=== PATIENT | male | born 1955 | race American Indian/Alaskan Native ===

== ENCOUNTER 2018-05-07 17:18 | Inpatient (IN) | payer BC ==
[2018-05-07 17:49] VITALS: BMI 28.8
--- NOTE | 2018-05-07 20:40 | CP.PCM.HP ---
History of Present Illness - History of Present Illness History of Present Illness: CC: transferred from [facility] to Acute Rehab for weakness post acute CVA HPI: Patient is a 62-year-old male with past medical history significant for type 2 diabetes and GERD that presented to the emergency room at [facility] with left-sided weakness. 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 Presents to Acute rehab for admission and contuied intensive therapy. Patient denies chest pain or shortness of breath. No abdominal pain, nausea, or vomiting. No fevers or chills. No headaches or dizziness. No dysuria. No diarrhea. He does have constipation. PMD: none PMH: DM2, GERD, CVA new dx at [facility], Hypertension PSH: appendectomy in 2010 Meds: Patient denies taking any home medications New meds from [facility] reviewed. Allergies: NKDA Fam Hx: mother and two brothers have DM2 Soc Hx: denies tobacco or alcohol use. Admits to occasionally smoking marijuana. He is currently under a lot of stress as he is unemployed and trying to find a job. Present on Admission - Present on Admission Any Indicators Present on Admission: Yes History of DVT/PE: No History of Uncontrolled Diabetes: Yes Urinary Catheter: No Decubitus Ulcer Present: No Review of Systems - Review of Systems All systems: reviewed and no additional remarkable complaints except Review of Systems: in HPI Past Patient History - Past Medical History & Family History Past Medical History?: Yes - Past Social History Smoking Status: Never Smoked Drugs: Cannabis - CARDIAC Hx Hypertension: Yes - ENDOCRINE/METABOLIC Hx Diabetes Mellitus Type 2: Yes - MUSCULOSKELETAL/RHEUMATOLOGICAL Hx Falls: No - PSYCHIATRIC Hx Substance Use: Yes - SURGICAL HISTORY Hx Appendectomy: Yes (2010) Meds Allergies/Adverse Reactions: Allergies Allergy/AdvReac Type Severity Reaction Status Date / Time No Known Allergies Allergy Verified 05/04/18 22:08 Physical Exam - Constitutional Appears: Well, Non-toxic - Head Exam Head Exam: ATRAUMATIC - Eye Exam Eye Exam: Normal appearance - ENT Exam ENT Exam: Mucous Membranes Dry - Neck Exam Neck exam: Positive for: Full Rom - Respiratory Exam Respiratory Exam: Clear to Auscultation Bilateral, NORMAL BREATHING PATTERN. absent: Rales, Rhonchi, Wheezes - Cardiovascular Exam Cardiovascular Exam: REGULAR RHYTHM, +S1, +S2 - GI/Abdominal Exam GI & Abdominal Exam: Normal Bowel Sounds, Soft. absent: Organomegaly, Tenderness - Extremities Exam Additional comments: callous cuts no ulcers - Neurological Exam Neurological exam: Alert, Oriented x3 - Expanded Neurological Exam Expanded Patient oriented to: person, place, time Speech: Fluid Speech Cranial nerves: EOM's Intact: Normal, Facial Palsey w/Forehead Movement: Normal , Facial Palsey w/o Forehead Movement: Normal, Facial Sensation: Normal, Gag Reflex: Normal, Nystagmus: Normal, Tongue Deviation: Normal Neuro motor strength exam: Left Upper Extremity: 5, Right Upper Extremity: 5, Left Lower Extremity: 3, Right Lower Extremity: 5 Coma Scale Eye Opening: SPONTANEOUS Coma Scale Motor Response: OBEYS COMMANDS - Psychiatric Exam Psychiatric exam: Normal Affect - Skin Skin Exam: Normal Color Results - Labs Labs: Reviewed from [facility] admission. - Imaging and Cardiology MRI - head Status: Report reviewed by me Assessment & Plan - Assessment and Plan (Free Text) Assessment: Patient is a 62-year-old male with past medical history significant for type 2 diabetes and GERD that presented to the emergency room with left-sided weakness. Patient found to have acute infarct in the right thalamus measuring 6 x 12 mm. 1. Ischemic CVA with left-sided weakness. MRI brain shows acute infarct in the right thalamus measuring 6 x 12 mm. Neurology following, recommendations appreciated. 2-D echo results pending. Head and neck CTA shows normal CT angiogram of the neck and unremarkable CT angiography of the brain. Continue aspirin and Lipitor and plavix. Continue physical therapy and occupational therapy. Patient to take plavix and asa for 21 days then follow up with Dr. Perla office for discontinuation of aspirin or Plavix based on his evaluation. 2. Uncontrolled type 2 diabetes. Hemoglobin A1c is 12.9. Will start on insulin Levemir 10 units at bedtime and Humalog 3 units before meals. Continue with insulin sliding scale. Continue diabetic diet. Monitor Accu-Cheks. Diabetic education. Start metformin monitor LFTs in 1 week. 3. Essential hypertension, uncontrolled. Now better controlled with lisinopril. Continue to monitor and adjust medications as needed 4. Hyperlipidemia. Continue Lipitor. Diet and exercise recommended 5. DVT prophylaxis. Heparin 5000 units subcutaneous every 8 hours 6. Patient will need follow with neurologist Dr Perla within 3-5 days after discharge from rehab, and [facility] as scheduled on 05/13/18 at3:30pm (can also call to make an appointment).
[2018-05-07] MEDS ORDERED: Glucagon Recombinant 1 mg Inj IM PRN (20:43)
[2018-05-07] MEDS ORDERED: Dextrose 50% SYRINGE Inj (50 ml) IV PRN (20:43)
[2018-05-07] MEDS: Docusate-Senna 50 mg-8.6 mg Tab PO PRN (21:52)
[2018-05-07] MEDS: Insulin Detemir 100 Units/ml Inj SC SCH (22:41)
[2018-05-07] MEDS: Insulin Lispro (humaLOG) 100 Units/ml Inj SC SCH (22:52)
[2018-05-08 06:41] LABS: BASO % 0.5 % (0.0-2.0); EOS # 0.1 K/uL (0.0-0.7); EOS % 1.3 % (0.0-4.0); LYMPH # 2.5 K/uL (1.0-4.3); LYMPH % 30.9 % (20.0-40.0); MEAN CELL VOLUME 84.9 fl (80.0-94.0); MEAN CORPUSCULAR HEMOGLOBIN 28.9 pg (27.0-31.0); MEAN PLATELET VOLUME 9.1 fl (7.2-11.7); MONO # 0.5 K/uL (0.0-0.8); MONO % 5.9 % (0.0-10.0); NEUT % 61.4 % (50.0-75.0); RBC 4.51 Mil/uL (4.40-5.90); RED CELL DISTRIBUTION WIDTH 13.7 % (11.5-14.5); WHITE BLOOD COUNT 8.1 K/uL (4.8-10.8)
[2018-05-08 07:28] LABS: ALB/GLOB RATIO 1.1 (1.0-2.1); ALBUMIN 3.8 g/dL (3.5-5.0); ALT/SGPT 40 U/L (21-72); AST/SGOT 29 U/L (17-59); BLOOD UREA NITROGEN 12 mg/dl (9-20); CALCIUM 9.4 mg/dL (8.4-10.2)
[2018-05-08 07:29] LABS: GFR AFRICAN-AMERICAN > 60; GFR NON-AFRICAN AMERICAN > 60
[2018-05-08] MEDS ORDERED: Insulin Lispro (humaLOG) 100 Units/ml Inj SC SCH (07:30)
[2018-05-08] MEDS: Insulin Lispro (humaLOG) 100 Units/ml Inj SC SCH ×7 (08:53→23:04)
[2018-05-08] MEDS: Ammonium Lactate 12% Cream (140 g) TOP SCH ×2 (08:55→18:26)
[2018-05-08] MEDS: Docusate-Senna 50 mg-8.6 mg Tab PO PRN (08:56)
--- NOTE | 2018-05-08 12:38 | PCM.RRT ---
<Benja Holland - Last Filed: 05/08/18 12:53> PATIENT CARE Nurse Assessment - Situation PATIENT CARE Reason for Call: Hypotension PATIENT CARE Called By: RN - IV IV Inserted during PATIENT CARE?: Yes I.Reason for PATIENT CARE - A) Acute Change in Patient: (Select all that apply): Staff member or family is worried about patient Subjective: Pt 62 M with pmh of HTN, DM, GERD complained of feeling warm, diaphoretic and yawning. Nurse noted pt possible seizing. PATIENT CARE was called pt evaluated at bed side temp 97.9 BP 132/87 pulse 93 SPO2 97% glucose 249, Pt denies chest pain, SOb, headache, nausea, vomiting, abd pain. EKG done was shows no acute changes from previous one. Pt was started on Norvasc 2.5 mg in morning, and senna yesterday, and was already on Labetolol 100mg TiD and lisinopril 20 mg. CBC/CMB, troponin was ordered, bed positioning, parameter, neuro consult. Norvasc 2.5 mg d/c, labetolol 100mg reduce from TID to BID. NS started 500cc bolus, and Kepra 500mg bid. F/U lab and neuro consult. - Neurological Status (Select all that apply): Alert, Responsive, Oriented, Verbal, Follows Commands. absent: Confused - Respiratory Oxygen Delivery Method: Nasal Cannula @L/min - Constitutional Appears: Well, Non-toxic, No Acute Distress - Head Head Exam: ATRAUMATIC, NORMAL INSPECTION, NORMOCEPHALIC - Eyes Eye Exam: EOMI, Normal appearance, PERRL - Respiratory Exam Respiratory Exam: Clear to Ausculation Bilateral, NORMAL BREATHING PATTERN - Cardiovascular Exam Cardiovascular Exam: REGULAR RHYTHM, +S1, +S2 - GI/Abdominal Exam GI & Abdominal Exam: Soft, Normal Bowel Sounds. absent: Tenderness - Neurological Exam Neurological Exam: Alert, Awake - Extremities Exam Extremities Exam: Full ROM, Normal Capillary Refill, Normal Inspection Plan - Assessment of Findings&Treatment Plan Pt 62 M with pmh of HTN, DM, GERD complained of feeling warm, diaphoretic and yawning. Nurse noted pt possible seizing. Plan Stop Norvasc 2.5 Decrease labetolol TID to BID Kepra 500mg BID Parameter for orthostatic F/u labs F/u Troponin neuro consulted Pt remain in Acute rehab <Harrison Bell - Last Filed: 05/08/18 15:33> PATIENT CARE Nurse Assessment - Vital Signs Vital Signs: Rapid Response Vital Sign Blood Pressure 132/87 Pulse Rate 93 Respiratory Rate 18 Temperature 97.9 F Oxygen Saturation 97 - Vital Signs at end of PATIENT CARE Vital Signs at end of PATIENT CARE: Rapid Response End Vital Sign Blood Pressure 123/74 Pulse Rate 87 Respiratory Rate 18 Attending/Attestation - Attestation I have personally seen and examined this patient.: Yes I have fully participated in the care of the patient.: Yes I have reviewed all pertinent clinical information, including history, physical exam and plan: Yes Notes (Text): Labs, ekg reviewed trop neg will check chest ct to rule out pe start keppra order EEG most likely Orthostatic hypotension - due to new bp med Norvasc which was discontinued after PATIENT CARE
[2018-05-08 13:09] LABS: BASO # 0.1 K/uL (0.0-0.2); EOS # 0.1 K/uL (0.0-0.7); EOS % 1.8 % (0.0-4.0); HEMOGLOBIN 13.1 g/dL (12.0-18.0); LYMPH # 2.4 K/uL (1.0-4.3); LYMPH % 29.1 % (20.0-40.0); MEAN CELL VOLUME 85.4 fl (80.0-94.0); MEAN CORPUSCULAR HEMOGLOBIN 28.9 pg (27.0-31.0); MEAN CORPUSCULAR HGB CONC 33.9 g/dL (33.0-37.0); MEAN PLATELET VOLUME 9.5 fl (7.2-11.7); MONO # 0.5 K/uL (0.0-0.8); MONO % 6.2 % (0.0-10.0); NEUT # 5.1 K/uL (1.8-7.0); NEUT % 61.9 % (50.0-75.0); NRBC % 0.2 % (0.0-0.0); RBC 4.52 Mil/uL (4.40-5.90); RED CELL DISTRIBUTION WIDTH 14.2 % (11.5-14.5); WHITE BLOOD COUNT 8.2 K/uL (4.8-10.8)
[2018-05-08] MEDS: Sodium Chloride 0.9% 1,000 ML IV SCH ×2 (13:21→14:07)
--- NOTE | 2018-05-08 13:33 | PSY.TMCNF ---
Nursing - Vital Signs Vital Signs (Last 8 hours): Vital Signs 05/08/18 05/08/18 05/08/18 08:47 08:55 08:56 Temperature 98.4 F Pulse Rate 90 90 90 Respiratory 20 Rate Blood Pressure 148/94 H 148/94 H 148/94 H O2 Sat by Pulse 96 Oximetry 05/08/18 09:00 Temperature 98.4 F Pulse Rate 90 Respiratory 20 Rate Blood Pressure 148/94 H O2 Sat by Pulse Oximetry - Precautions: Precautions: Fall Prevention - Medications/Other Issues Comment: constipation - LBM , prn senna given along with scheduled colace - Consults Comment: - rehab MD = Dr. cox - Skin Incision Site: n/a - Toileting Toileting: Maximal Assistance - Bladder Management Bladder Pattern: Normal Voiding Method: Urinal - Bowel Management Bowel Pattern: Constipated Comment: LBm 05/03 - Transfers Transfers: Maximal Assistance - ADL's ADL's: Moderate Assistance - Pain Management Comments: denies pain at this time - Patient/Family Teaching Comments: - medications. - new to DM, DM diet. - safety - Goals/Time Frame Comments: as per multiinterdisciplinary - Provider Provider: Silvia Kramer RN Physical Therapy - Transfers Wheelchair to Mat: Moderate Assistance - Provider License Number: [id number] Occupational Therapy - Arousal/Attention/Orientation Patient Orientation: Person, Place, Time, Appropriate to Age, Appropriate to Situation Nutrition - Current Diet Current Diet/ Supplement/ Feedings: Moderate consistent CHO heart healthy diet - Appetite Percent Meal Consumed: 75-100% - Comments Comments: - medications. - new to DM, DM diet. - safety - Assessment/Goals/Time Frame Assessment/Goals/Time Frame: constipation - LBM , prn senna given along with scheduled colace - Provider Provider: Breanne Barros RD Case Management - Discharge Plan Discharge Plan: Home with significant other/family Rehabilitation Plan - Treatment Plan Treatment Plan: Physical Therapy, Occupational Therapy, Speech, Dietary, Patient /Family Education - Recommendation Recommendation: Physical Therapy, Occupational Therapy, Speech, Dietary, Patient /Family Education - Discharge Plan Discharge to: Home
[2018-05-08 13:52] LABS: ALB/GLOB RATIO 1.1 (1.0-2.1); ALBUMIN 3.8 g/dL (3.5-5.0); ALT/SGPT 41 U/L (21-72); AST/SGOT 41 U/L (17-59); BLOOD UREA NITROGEN 15 mg/dl (9-20); CALCIUM 9.3 mg/dL (8.4-10.2); GFR AFRICAN-AMERICAN > 60; GFR NON-AFRICAN AMERICAN > 60
--- NOTE | 2018-05-08 14:41 | CP.PCM.CON ---
History of Present Illness - History of Present Illness History of Present Illness: 62 year old male with left sided weakness, secondary to cva with DM gerd Review of Systems - Musculoskeletal Musculoskeletal: Muscle Weakness - Neurological Neurological: Weakness Past Patient History - Past Medical History & Family History Past Medical History?: Yes - Past Social History Smoking Status: Former Smoker - CARDIAC Hx Hypercholesterolemia: Yes Hx Hypertension: Yes - PULMONARY Hx Respiratory Disorders: No - NEUROLOGICAL Hx Neurological Disorder: Yes HX Cerebrovascular Accident: Yes - HEENT Hx HEENT Problems: No - RENAL Hx Chronic Kidney Disease: No - ENDOCRINE/METABOLIC Hx Diabetes Mellitus Type 2: Yes - HEMATOLOGICAL/ONCOLOGICAL Hx Blood Disorders: No Hx AIDS: No Hx Human Immunodeficiency Virus (HIV): No - INTEGUMENTARY Hx Dermatological Problems: No - MUSCULOSKELETAL/RHEUMATOLOGICAL Hx Musculoskeletal Disorders: No Hx Falls: No - GASTROINTESTINAL Hx Gastrointestinal Disorders: Yes Other/Comment: GERD - GENITOURINARY/GYNECOLOGICAL Hx Genitourinary Disorders: No - PSYCHIATRIC Hx Substance Use: Yes () - SURGICAL HISTORY Hx Surgeries: Yes Hx Appendectomy: Yes (2010) - ANESTHESIA Hx Anesthesia: Yes Hx Anesthesia Reactions: No Meds Allergies/Adverse Reactions: Allergies Allergy/AdvReac Type Severity Reaction Status Date / Time No Known Allergies Allergy Verified 05/04/18 22:08 - Medications Medications: Current Medications Acetaminophen (Tylenol 325mg Tab) 650 mg PO Q6 PRN PRN Reason: pain 8-10 Aspirin (Aspirin Chewable) 81 mg PO DAILY [facility] Last Admin: 05/08/18 08:53 Dose: 81 mg Atorvastatin Calcium (Lipitor) 40 mg PO DIN [facility] Bisacodyl (Dulcolax) 10 mg MO ONCE PRN PRN Reason: Constipation Last Admin: 05/08/18 13:20 Dose: 10 mg Bismuth Subsalicylate (Pepto Bismol) 262 mg PO Q1 PRN PRN Reason: GI distress Clopidogrel Bisulfate (Plavix) 75 mg PO DAILY [facility] Last Admin: 05/08/18 08:56 Dose: 75 mg Dextrose (Dextrose 50% Inj) 0 ml IV STAT PRN; Protocol PRN Reason: Hypoglycemia Protocol Dextrose (Glutose 15) 0 gm PO ONCE PRN; Protocol PRN Reason: Hypoglycemia Protocol Docusate Sodium (Colace) 100 mg PO DAILY [facility] Last Admin: 05/08/18 08:53 Dose: 100 mg Glucagon (Glucagen Diagnostic Kit) 0 mg IM STAT PRN; Protocol PRN Reason: Hypoglycemia Protocol Heparin Sodium (Porcine) (Heparin) 5,000 units SC Q8 [facility] PRN Reason: Protocol Last Admin: 05/08/18 05:19 Dose: 5,000 units Insulin Detemir (Levemir) 10 units SC HS [facility] Last Admin: 05/07/18 22:41 Dose: 10 units Insulin Human Lispro (Humalog) 4 units SC ACTID [facility] Last Admin: 05/08/18 13:40 Dose: 4 units Insulin Human Lispro (Humalog) 0 units SC ACHS [facility] PRN Reason: Protocol Last Admin: 05/08/18 13:42 Dose: 3 units Labetalol HCl (Trandate) 100 mg PO BID [facility] Lactic Acid (Lac-Hydrin 12% Cream (140 G)) 1 ea TOP BID [facility] Last Admin: 05/08/18 08:55 Dose: 1 tube Levetiracetam (Keppra) 500 mg PO BID [facility] Lisinopril (Zestril) 20 mg PO DAILY [facility] Last Admin: 05/08/18 08:56 Dose: 20 mg Senna/Docusate Sodium (Senokot S 50 Mg-8.6 Mg) 1 tab PO HS PRN PRN Reason: Constipation Last Admin: 05/08/18 08:56 Dose: 1 tab Physical Exam - Head Exam Head Exam: ATRAUMATIC, NORMAL INSPECTION, NORMOCEPHALIC - Eye Exam Eye Exam: EOMI, Normal appearance, PERRL Pupil Exam: NORMAL ACCOMODATION - ENT Exam ENT Exam: Mucous Membranes Moist, Normal Exam - Neck Exam Neck exam: Positive for: Normal Inspection - Respiratory Exam Respiratory Exam: Clear to Auscultation Bilateral, NORMAL BREATHING PATTERN - Cardiovascular Exam Cardiovascular Exam: REGULAR RHYTHM - GI/Abdominal Exam GI & Abdominal Exam: Normal Bowel Sounds - Rectal Exam Rectal Exam: NORMAL INSPECTION - Exam External exam: NORMAL EXTERNAL EXAM - Extremities Exam Extremities exam: Positive for: normal inspection Additional comments: left sided weakness - Back Exam Back exam: NORMAL INSPECTION - Neurological Exam Neurological exam: Alert, CN II-XII Intact - Psychiatric Exam Psychiatric exam: Normal Affect, Normal Mood - Skin Skin Exam: Dry, Intact Results - Vital Signs Recent Vital Signs: Last Vital Signs Temp 98.4 F 05/08/18 09:00 Pulse 90 05/08/18 09:00 Resp 20 05/08/18 09:00 BP 148/94 H 05/08/18 09:00 Pulse Ox 96 05/08/18 08:47 - Labs Result Diagrams: 05/08/18 12:55 05/08/18 12:55 Labs: Laboratory Results - last 24 hr 05/08/18 05/08/18 05/08/18 05:20 05:20 12:55 WBC 8.1 8.2 RBC 4.51 4.52 Hgb 13.0 13.1 Hct 38.3 38.6 MCV 84.9 85.4 MCH 28.9 28.9 MCHC 34.0 33.9 RDW 13.7 14.2 Plt Count 251 265 MPV 9.1 9.5 Neut % (Auto) 61.4 61.9 Lymph % (Auto) 30.9 29.1 [place] % (Auto) 5.9 6.2 Eos % (Auto) 1.3 1.8 Baso % (Auto) 0.5 1.0 Neut # (Auto) 5.0 5.1 Lymph # (Auto) 2.5 2.4 [place] # (Auto) 0.5 0.5 Eos # (Auto) 0.1 0.1 Baso # (Auto) 0.0 0.1 Sodium 138 Potassium 4.0 Chloride 103 Carbon Dioxide 23 Anion Gap 16 BUN 12 Creatinine 1.0 Est GFR ( Amer) > 60 Est GFR (Non-Af Amer) > 60 Random Glucose 240 H Calcium 9.4 Total Bilirubin 0.6 AST 29 ALT 40 Alkaline Phosphatase 105 Troponin I Total Protein 7.1 Albumin 3.8 Globulin 3.3 Albumin/Globulin Ratio 1.1 05/08/18 12:55 WBC RBC Hgb Hct MCV MCH MCHC RDW Plt Count MPV Neut % (Auto) Lymph % (Auto) [place] % (Auto) Eos % (Auto) Baso % (Auto) Neut # (Auto) Lymph # (Auto) [place] # (Auto) Eos # (Auto) Baso # (Auto) Sodium 138 Potassium 4.0 Chloride 101 Carbon Dioxide 24 Anion Gap 17 BUN 15 Creatinine 1.0 Est GFR ( Amer) > 60 Est GFR (Non-Af Amer) > 60 Random Glucose 283 H Calcium 9.3 Total Bilirubin 0.7 AST 41 ALT 41 Alkaline Phosphatase 97 Troponin I < 0.0120 Total Protein 7.4 Albumin 3.8 Globulin 3.6 Albumin/Globulin Ratio 1.1 Assessment & Plan (1) Hyperlipidemia Status: Acute Priority: Medium (2) Diabetes mellitus Status: Chronic Priority: Medium (3) GERD (gastroesophageal reflux disease) Status: Chronic Priority: Low (4) Hypertension Status: Chronic Priority: Medium (5) CVA (cerebral vascular accident) Assessment and Plan: plan for physical, occupational, rec and speech therapy for range of motion, strenghtening, transfers and gait training for overall plan of care Status: Resolved Priority: Medium
--- NOTE | 2018-05-08 14:44 | PCM.OPOC ---
Physiatry Overall Plan of Care - Overall Plan of Care Estimated Length of Stay in Weeks: 3 Rehab Impairment: Mobility, Gait, Cognition, Speech, Balance, Coordination Etiologic Diagnosis: Cerebrovascular Accident Rehab/Medical Prognosis: Fair - Anticipated Interventions Physical Therapy:: Yes Occupational Therapy:: Yes Speech Therapy:: Yes Recreational Therapy:: Yes - Therapy Goals Bed Mobility: Independent Ambulation: Supervision Functional Positional Changes:: Independent - Functional Outcomes Functional Outcomes: fair - Discharge Plan Identification of Barriers to Discharge: Cognition Discharge Destination: Home
[2018-05-08] MEDS ORDERED: Sodium Chloride 0.9% 50 ML IV ONE (17:16)
[2018-05-08] MEDS ORDERED: Iodixanol 320 MG/ML 100 ML BOTTLE IV ONE (17:16)
--- NOTE | 2018-05-08 18:13 | CP.PCM.PN ---
Subjective - Date & Time of Evaluation Date of Evaluation: 05/08/18 Time of Evaluation: 16:45 - Subjective Subjective: I arrived to the patient's room and was greeted by his family. They informed me that he had gone to CT scan. I spoke with them briefly and discussed the case with the patient's nurse and the physical therapist who witnessed the event earlier. Based on the report I received, the patient was receiving PT and using the treadmill. He complained of feeling lethargic and weak. He was taken off the treadmill and shortly after, his eyes "rolled back", his arms were extended and he was not responsive. He then had an episode of staring. This lasted for about one minute. Afterward, the patient regained consciousness and he asked "did I pass out". He said that he felt tired and wanted to sleep. There was no urinary/bowel incontinence, tongue biting, or collapse. The event was consistent with seizure. I agreed that the patient should be on Keppra 500 mg BID and an EEG should be performed. In addition, since the patient has had a recent stroke, a repeat CT scan of the head is recommended. Objective - Vital Signs/Intake and Output Vital Signs (last 24 hours): Temp Pulse Resp BP Pulse Ox 98.6 F 83 20 127/75 99 05/08/18 15:15 05/08/18 15:15 05/08/18 15:15 05/08/18 15:15 05/08/18 15:15 - Medications Medications: Current Medications Acetaminophen (Tylenol 325mg Tab) 650 mg PO Q6 PRN PRN Reason: pain 8-10 Aspirin (Aspirin Chewable) 81 mg PO DAILY [facility] Last Admin: 05/08/18 08:53 Dose: 81 mg Atorvastatin Calcium (Lipitor) 40 mg PO DIN [facility] Bisacodyl (Dulcolax) 10 mg NC ONCE PRN PRN Reason: Constipation Last Admin: 05/08/18 13:20 Dose: 10 mg Bismuth Subsalicylate (Pepto Bismol) 262 mg PO Q1 PRN PRN Reason: GI distress Clopidogrel Bisulfate (Plavix) 75 mg PO DAILY [facility] Last Admin: 05/08/18 08:56 Dose: 75 mg Dextrose (Dextrose 50% Inj) 0 ml IV STAT PRN; Protocol PRN Reason: Hypoglycemia Protocol Dextrose (Glutose 15) 0 gm PO ONCE PRN; Protocol PRN Reason: Hypoglycemia Protocol Docusate Sodium (Colace) 100 mg PO DAILY [facility] Last Admin: 05/08/18 08:53 Dose: 100 mg Glucagon (Glucagen Diagnostic Kit) 0 mg IM STAT PRN; Protocol PRN Reason: Hypoglycemia Protocol Heparin Sodium (Porcine) (Heparin) 5,000 units SC Q8 [facility] PRN Reason: Protocol Last Admin: 05/08/18 15:02 Dose: 5,000 units Insulin Detemir (Levemir) 10 units SC HS [facility] Last Admin: 05/07/18 22:41 Dose: 10 units Insulin Human Lispro (Humalog) 4 units SC ACTID [facility] Last Admin: 05/08/18 13:40 Dose: 4 units Insulin Human Lispro (Humalog) 0 units SC ACHS [facility] PRN Reason: Protocol Last Admin: 05/08/18 13:42 Dose: 3 units Labetalol HCl (Trandate) 100 mg PO BID [facility] Lactic Acid (Lac-Hydrin 12% Cream (140 G)) 1 ea TOP BID [facility] Last Admin: 05/08/18 08:55 Dose: 1 tube Levetiracetam (Keppra) 500 mg PO BID [facility] Lisinopril (Zestril) 20 mg PO DAILY [facility] Last Admin: 05/08/18 08:56 Dose: 20 mg Senna/Docusate Sodium (Senokot S 50 Mg-8.6 Mg) 1 tab PO HS PRN PRN Reason: Constipation Last Admin: 05/08/18 08:56 Dose: 1 tab - Labs Labs: 05/08/18 12:55 05/08/18 12:55
--- NOTE | 2018-05-08 18:31 | CT ---
Date of service: 05/08/2018 PROCEDURE: CT Chest with contrast (Pulmonary Angiogram) HISTORY: Pulmonary embolism suspected COMPARISON: None available. TECHNIQUE: Axial computed tomography images were obtained of the chest in the pulmonary arterial phase of enhancement. Coronal and sagittal reformatted images were created and reviewed. Intravenous contrast dose: 90 cc Visipaque 320. Mean Hounsfield unit values in the main pulmonary artery: 397.88 Radiation dose: Total exam DLP = mGy-cm. This CT exam was performed using one or more of the following dose reduction techniques: Automated exposure control, adjustment of the mA and/or kV according to patient size, and/or use of iterative reconstruction technique. FINDINGS: PULMONARY ARTERIES: Unremarkable. No pulmonary embolism. AORTA: No acute findings. No thoracic aortic aneurysm. LUNGS: Unremarkable. No nodule, mass or pulmonary consolidation. PLEURAL SPACES: Unremarkable. No effusion or pneumothorax. HEART: Unremarkable. No cardiomegaly. No significant pericardial effusion. LYMPH NODES: No lymphadenopathy. BONES, CHEST WALL: Unremarkable. No fracture or destructive lesion OTHER FINDINGS: Unremarkable. IMPRESSION: Unremarkable CT pulmonary angiogram. No pulmonary embolus.
--- NOTE | 2018-05-08 18:56 | CT ---
Date of service: 05/08/2018 PROCEDURE: CT HEAD WITHOUT CONTRAST. HISTORY: Near syncope. COMPARISON: None available. TECHNIQUE: Axial computed tomography images were obtained through the head/brain without intravenous contrast. Radiation dose: Total exam DLP = 814.65 mGy-cm. This CT exam was performed using one or more of the following dose reduction techniques: Automated exposure control, adjustment of the mA and/or kV according to patient size, and/or use of iterative reconstruction technique. FINDINGS: HEMORRHAGE: No intracranial hemorrhage. BRAIN: Mild chronic periventricular white matter ischemic changes with age indeterminate infarct right basal ganglia ; rule out acute infarct. Followup MRI recommended further evaluation Mild age-appropriate volume loss VENTRICLES: No obstructive hydrocephalus. CALVARIUM: Unremarkable. PARANASAL SINUSES: Mild mucosal thickening noted within multiple ethmoid air cells. . MASTOID AIR CELLS: Unremarkable as visualized. No inflammatory changes. OTHER FINDINGS: Old fracture deformity right lamina papyracea. IMPRESSION: No acute intracranial hemorrhage. Mild chronic periventricular white matter ischemic changes. Age indeterminate infarct right basal ganglia. Followup MRI recommended. Mild age-appropriate volume loss 6 floor Nurse Logan informed these findings at approximately 6:50 p.m. with written down and read back verification.
--- NOTE | 2018-05-08 20:10 | PN ---
DATE: 05/08/2018 SUBJECTIVE: The patient is doing fine at present. 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 No acute complaints at present. PHYSICAL EXAMINATION: VITAL SIGNS: Stable. NECK: Supple. CHEST: Symmetrical. HEART: Sounds S1 and S2. ABDOMEN: Benign. EXTREMITIES: No clubbing, cyanosis or edema. NEUROLOGICAL: The patient is alert and oriented, left lower extremity weakness with CVA. ASSESSMENT: Other diagnoses are diabetes, gastroesophageal reflux disease, appendectomy, hyperlipidemia. PLAN: For physical therapy , occupational therapy, recreational therapy, speech therapy. The patient seen by medical attending and also to be seen by neurologist today as well. Nathen Shaw MD
[2018-05-08] MEDS: Insulin Detemir 100 Units/ml Inj SC SCH (23:04)
[2018-05-09] MEDS: Docusate-Senna 50 mg-8.6 mg Tab PO PRN (08:30)
[2018-05-09] MEDS: Insulin Lispro (humaLOG) 100 Units/ml Inj SC SCH ×7 (08:33→21:35)
[2018-05-09] MEDS: Ammonium Lactate 12% Cream (140 g) TOP SCH ×2 (08:40→17:20)
--- NOTE | 2018-05-09 11:27 | CP.PCM.CON ---
History of Present Illness - History of Present Illness History of Present Illness: Mr. Marte is a 62-year-old male with past medical history significant for type 2 diabetes and GERD that presented to the emergency room at [facility] with left-sided weakness. 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 Presents to Acute rehab for admission and continued intensive therapy. Yesterday, he had an episode of his eyes "rolled back", his arms were extended and he was not responsive. He then had an episode of staring. This lasted for about one minute. [facility] was called with order for IVF and CT scan of the head. CT scan of the head showed No acute intracranial hemorrhage.Mild chronic periventricular white matter ischemic changes. Age indeterminate infarct right basal ganglia. Mild age-appropriate volume loss. Today, he is alert, oriented, claims of feeling tired after yesterday's incident. He denies any headache, dizziness, lightheadedness, blurred vision, or diplopia. Review of Systems - Review of Systems All systems: reviewed and no additional remarkable complaints except (left side weakness) Past Patient History - Past Medical History & Family History Past Medical History?: Yes - Past Social History Smoking Status: Former Smoker - CARDIAC Hx Hypercholesterolemia: Yes Hx Hypertension: Yes - PULMONARY Hx Respiratory Disorders: No - NEUROLOGICAL Hx Neurological Disorder: Yes HX Cerebrovascular Accident: Yes - HEENT Hx HEENT Problems: No - RENAL Hx Chronic Kidney Disease: No - ENDOCRINE/METABOLIC Hx Diabetes Mellitus Type 2: Yes - HEMATOLOGICAL/ONCOLOGICAL Hx Blood Disorders: No Hx AIDS: No Hx Human Immunodeficiency Virus (HIV): No - INTEGUMENTARY Hx Dermatological Problems: No - MUSCULOSKELETAL/RHEUMATOLOGICAL Hx Musculoskeletal Disorders: No Hx Falls: No - GASTROINTESTINAL Hx Gastrointestinal Disorders: Yes Other/Comment: GERD - GENITOURINARY/GYNECOLOGICAL Hx Genitourinary Disorders: No - PSYCHIATRIC Hx Substance Use: Yes (Marijuana) - SURGICAL HISTORY Hx Surgeries: Yes Hx Appendectomy: Yes (2010) - ANESTHESIA Hx Anesthesia: Yes Hx Anesthesia Reactions: No Meds Allergies/Adverse Reactions: Allergies Allergy/AdvReac Type Severity Reaction Status Date / Time No Known Allergies Allergy Verified 05/04/18 22:08 - Medications Medications: Current Medications Acetaminophen (Tylenol 325mg Tab) 650 mg PO Q6 PRN PRN Reason: pain 8-10 Aspirin (Aspirin Chewable) 81 mg PO DAILY [facility] Last Admin: 05/09/18 08:30 Dose: 81 mg Atorvastatin Calcium (Lipitor) 40 mg PO DIN [facility] Last Admin: 05/08/18 18:27 Dose: 40 mg Bisacodyl (Dulcolax) 10 mg [place] ONCE PRN PRN Reason: Constipation Last Admin: 05/08/18 13:20 Dose: 10 mg Bismuth Subsalicylate (Pepto Bismol) 262 mg PO Q1 PRN PRN Reason: GI distress Clopidogrel Bisulfate (Plavix) 75 mg PO DAILY [facility] Last Admin: 05/09/18 08:31 Dose: 75 mg Dextrose (Dextrose 50% Inj) 0 ml IV STAT PRN; Protocol PRN Reason: Hypoglycemia Protocol Dextrose (Glutose 15) 0 gm PO ONCE PRN; Protocol PRN Reason: Hypoglycemia Protocol Docusate Sodium (Colace) 100 mg PO DAILY [facility] Last Admin: 05/09/18 08:32 Dose: 100 mg Glucagon (Glucagen Diagnostic Kit) 0 mg IM STAT PRN; Protocol PRN Reason: Hypoglycemia Protocol Heparin Sodium (Porcine) (Heparin) 5,000 units SC Q8 [facility] PRN Reason: Protocol Last Admin: 05/09/18 06:35 Dose: 5,000 units Insulin Detemir (Levemir) 10 units SC HS [facility] Last Admin: 05/08/18 23:04 Dose: 10 units Insulin Human Lispro (Humalog) 4 units SC ACTID [facility] Last Admin: 05/09/18 08:33 Dose: 4 units Insulin Human Lispro (Humalog) 0 units SC ACHS [facility] PRN Reason: Protocol Last Admin: 05/09/18 08:34 Dose: 4 units Labetalol HCl (Trandate) 100 mg PO BID [facility] Last Admin: 05/09/18 08:31 Dose: 100 mg Lactic Acid (Lac-Hydrin 12% Cream (140 G)) 1 ea TOP BID [facility] Last Admin: 05/09/18 08:40 Dose: 1 tube Levetiracetam (Keppra) 500 mg PO BID [facility] Last Admin: 05/09/18 08:30 Dose: 500 mg Lisinopril (Zestril) 20 mg PO DAILY [facility] Last Admin: 05/09/18 08:40 Dose: 20 mg Senna/Docusate Sodium (Senokot S 50 Mg-8.6 Mg) 1 tab PO HS PRN PRN Reason: Constipation Last Admin: 05/09/18 08:30 Dose: 1 tab Physical Exam - Constitutional Appears: No Acute Distress - Head Exam Head Exam: NORMAL INSPECTION - Eye Exam Eye Exam: EOMI, Normal appearance, PERRL Pupil Exam: NORMAL ACCOMODATION, PERRL - ENT Exam ENT Exam: Mucous Membranes Moist, Normal Exam - Neck Exam Neck exam: Positive for: Normal Inspection - Respiratory Exam Respiratory Exam: Clear to Auscultation Bilateral, NORMAL BREATHING PATTERN - Cardiovascular Exam Cardiovascular Exam: +S1, +S2 - GI/Abdominal Exam GI & Abdominal Exam: Normal Bowel Sounds, Soft. absent: Tenderness - Extremities Exam Extremities exam: Positive for: normal inspection Additional comments: left side weakness - Neurological Exam Neurological exam: Alert, Oriented x3 - Expanded Neurological Exam Expanded Patient oriented to: person, place, time Cranial nerves: EOM's Intact: Normal, Facial Palsey w/Forehead Movement: Abnormal Left, Facial Sensation: Normal, Gag Reflex: Normal, Nystagmus: Normal, Tongue Deviation: Normal Cerebellar Function: Finger to Nose: Normal, Heel to [place]: Abnormal Left Upper motor neuron: Chucho Neglect: Normal, Pronator Drift: Normal, Sensory Extinction: Normal Sensory exam: Lower Extremity 2 Point Discrimination: Normal, Lower Extremity Light Touch: Normal, Lower Extremity Pin Prick: Normal, Lower Extremity Temperature: Normal, Upper Extremity 2 Point Discrimination: Normal, Upper Extremity Light Touch: Normal, Upper Extremity Pin Prick: Normal, Upper Extremity Temperature: Normal Neuro motor strength exam: Left Upper Extremity: 3, Right Upper Extremity: 4, Left Lower Extremity: 3, Right Lower Extremity: 4 Results - Vital Signs Recent Vital Signs: Last Vital Signs Temp 97.3 F L 05/09/18 08:06 Pulse 78 05/09/18 08:40 Resp 20 05/09/18 08:06 BP 138/78 05/09/18 08:40 Pulse Ox 97 05/09/18 08:06 - Labs Result Diagrams: 05/08/18 12:55 05/08/18 12:55 Labs: Laboratory Results - last 24 hr 05/07/18 05/08/18 05/08/18 20:52 05:18 12:55 WBC 8.2 RBC 4.52 Hgb 13.1 Hct 38.6 MCV 85.4 MCH 28.9 MCHC 33.9 RDW 14.2 Plt Count 265 MPV 9.5 Neut % (Auto) 61.9 Lymph % (Auto) 29.1 Bay % (Auto) 6.2 Eos % (Auto) 1.8 Baso % (Auto) 1.0 Neut # (Auto) 5.1 Lymph # (Auto) 2.4 Bay # (Auto) 0.5 Eos # (Auto) 0.1 Baso # (Auto) 0.1 Sodium Potassium Chloride Carbon Dioxide Anion Gap BUN Creatinine Est GFR ( Amer) Est GFR (Non-Af Amer) POC Glucose (mg/dL) 216 H 199 H Random Glucose Calcium Total Bilirubin AST ALT Alkaline Phosphatase Troponin I Total Protein Albumin Globulin Albumin/Globulin Ratio 05/08/18 05/08/18 12:55 21:00 WBC RBC Hgb Hct MCV MCH MCHC RDW Plt Count MPV Neut % (Auto) Lymph % (Auto) Bay % (Auto) Eos % (Auto) Baso % (Auto) Neut # (Auto) Lymph # (Auto) Bay # (Auto) Eos # (Auto) Baso # (Auto) Sodium 138 Potassium 4.0 Chloride 101 Carbon Dioxide 24 Anion Gap 17 BUN 15 Creatinine 1.0 Est GFR ( Amer) > 60 Est GFR (Non-Af Amer) > 60 POC Glucose (mg/dL) Random Glucose 283 H Calcium 9.3 Total Bilirubin 0.7 AST 41 ALT 41 Alkaline Phosphatase 97 Troponin I < 0.0120 < 0.0120 Total Protein 7.4 Albumin 3.8 Globulin 3.6 Albumin/Globulin Ratio 1.1 Assessment & Plan (1) Seizure Assessment and Plan: 62-year-old male with past medical history significant for type 2 diabetes and GERD that presented to the emergency room at [facility] with left- sided weakness with an incident of seizure yesterday. Case discussed with Dr. Perla, recommend the followin.Keppra 500 mg BID 2. EEG. Status: Acute (2) CVA (cerebral vascular accident) Assessment and Plan: 62-year-old male with past medical history significant for type 2 diabetes and GERD that presented to the emergency room at [facility] with left- sided weakness Case discussed with Dr. Perla, recommend the following 1. PT/OT eval and treat 2. Continue dual antiplatelet; Aspirin 81 mg PO daily and plavix 75 mg PO daily 3. statin to maintain LDL < 70, Lipitor 40 mg PO daily 4. DVT prophylaxis 5. blood pressure and glycemic control 6. Case management consult. Thank you. Status: Resolved Priority: Medium
[2018-05-09] MEDS: Bismuth Subsalicylate 262 mg Chew Tab PO PRN (11:49)
--- NOTE | 2018-05-09 15:11 | CARD ---
APPROVED REPORT Date of service: 05/08/2018 EKG Measurement Heart [id number] <Conclusion> Normal sinus rhythm Normal ECG
[2018-05-09] MEDS: Insulin Detemir 100 Units/ml Inj SC SCH (23:35)
[2018-05-10] MEDS: Insulin Lispro (humaLOG) 100 Units/ml Inj SC SCH ×7 (07:45→21:17)
[2018-05-10] MEDS: Ammonium Lactate 12% Cream (140 g) TOP SCH ×2 (08:46→16:04)
--- NOTE | 2018-05-10 10:56 | CP.PCM.PN ---
Subjective - Date & Time of Evaluation Date of Evaluation: 05/10/18 Time of Evaluation: 10:48 - Subjective Subjective: Mr. Marte was seen and examined at the bedside. He is alert, oriented x 3. He denies any syncope, headache, dizziness, lightheadedness, nausea, or vomiting. He is able to follow simple commands. He is up in a chair with a good posture. There was no untoward events overnight. Objective - Vital Signs/Intake and Output Vital Signs (last 24 hours): Temp Pulse Resp BP Pulse Ox 97.3 F L 94 H 19 116/66 96 05/10/18 08:37 05/10/18 08:45 05/10/18 08:37 05/10/18 08:45 05/10/18 08:37 - Medications Medications: Current Medications Acetaminophen (Tylenol 325mg Tab) 650 mg PO Q6 PRN PRN Reason: pain 8-10 Aspirin (Aspirin Chewable) 81 mg PO DAILY [facility] Last Admin: 05/10/18 08:45 Dose: 81 mg Atorvastatin Calcium (Lipitor) 40 mg PO DIN [facility] Last Admin: 05/09/18 17:20 Dose: 40 mg Bisacodyl (Dulcolax) 10 mg [place] ONCE PRN PRN Reason: Constipation Last Admin: 05/08/18 13:20 Dose: 10 mg Bismuth Subsalicylate (Pepto Bismol) 262 mg PO Q1 PRN PRN Reason: GI distress Last Admin: 05/09/18 11:49 Dose: 262 mg Clopidogrel Bisulfate (Plavix) 75 mg PO DAILY [facility] Last Admin: 05/10/18 08:45 Dose: 75 mg Dextrose (Dextrose 50% Inj) 0 ml IV STAT PRN; Protocol PRN Reason: Hypoglycemia Protocol Dextrose (Glutose 15) 0 gm PO ONCE PRN; Protocol PRN Reason: Hypoglycemia Protocol Docusate Sodium (Colace) 100 mg PO DAILY [facility] Last Admin: 05/10/18 08:44 Dose: 100 mg Glucagon (Glucagen Diagnostic Kit) 0 mg IM STAT PRN; Protocol PRN Reason: Hypoglycemia Protocol Heparin Sodium (Porcine) (Heparin) 5,000 units SC Q8 [facility] PRN Reason: Protocol Last Admin: 05/10/18 05:57 Dose: 5,000 units Insulin Detemir (Levemir) 10 units SC HS [facility] Last Admin: 05/09/18 23:35 Dose: 10 units Insulin Human Lispro (Humalog) 4 units SC ACTID [facility] Last Admin: 05/10/18 07:45 Dose: 4 units Insulin Human Lispro (Humalog) 0 units SC ACHS [facility] PRN Reason: Protocol Last Admin: 05/10/18 07:45 Dose: 3 units Labetalol HCl (Trandate) 100 mg PO BID [facility] Last Admin: 05/10/18 08:46 Dose: Not Given Lactic Acid (Lac-Hydrin 12% Cream (140 G)) 1 ea TOP BID [facility] Last Admin: 05/10/18 08:46 Dose: 1 tube Levetiracetam (Keppra) 500 mg PO BID [facility] Last Admin: 05/10/18 08:45 Dose: 500 mg Lisinopril (Zestril) 20 mg PO DAILY [facility] Last Admin: 05/10/18 08:45 Dose: 20 mg Senna/Docusate Sodium (Senokot S 50 Mg-8.6 Mg) 1 tab PO HS PRN PRN Reason: Constipation Last Admin: 05/09/18 08:30 Dose: 1 tab - Labs Labs: 05/08/18 12:55 05/08/18 12:55 - Constitutional Appears: No Acute Distress - Head Exam Head Exam: NORMAL INSPECTION - Eye Exam Pupil Exam: PERRL - Neurological Exam Neurological Exam: Alert, Awake, Oriented x3 Neuro motor strength exam: Left Upper Extremity: 3, Right Upper Extremity: 4, Left Lower Extremity: 3, Right Lower Extremity: 4 Additional comments: neurological unchanged from previous examination Assessment and Plan (1) Seizure Assessment & Plan: Case discussed with Dr. Perla, continue all current medical, physical, and occupational therapies. Pending EEG result. Recommend hydration. Status: Acute (2) Ischemic stroke Assessment & Plan: Case discussed with Minda Nowak, continue all current medical, physical, occupational, and speech therapies. Recommend hydration, keeping the head of bed elevated at least 30 degrees while in the bed. Status: Acute
--- NOTE | 2018-05-10 14:53 | CP.PCM.PN ---
Subjective - Date & Time of Evaluation Date of Evaluation: 05/10/18 Time of Evaluation: 11:15 - Subjective Subjective: Patient seen and examined. Had to hold therapy today because of dizziness. BP was on the low side Objective - Vital Signs/Intake and Output Vital Signs (last 24 hours): Temp Pulse Resp BP Pulse Ox 97.3 F L 94 H 19 116/66 96 05/10/18 08:37 05/10/18 08:45 05/10/18 08:37 05/10/18 08:45 05/10/18 08:37 - Medications Medications: Current Medications Acetaminophen (Tylenol 325mg Tab) 650 mg PO Q6 PRN PRN Reason: pain 8-10 Aspirin (Aspirin Chewable) 81 mg PO DAILY [facility] Last Admin: 05/10/18 08:45 Dose: 81 mg Atorvastatin Calcium (Lipitor) 40 mg PO DIN [facility] Last Admin: 05/09/18 17:20 Dose: 40 mg Bisacodyl (Dulcolax) 10 mg [place] ONCE PRN PRN Reason: Constipation Last Admin: 05/08/18 13:20 Dose: 10 mg Bismuth Subsalicylate (Pepto Bismol) 262 mg PO Q1 PRN PRN Reason: GI distress Last Admin: 05/09/18 11:49 Dose: 262 mg Clopidogrel Bisulfate (Plavix) 75 mg PO DAILY [facility] Last Admin: 05/10/18 08:45 Dose: 75 mg Dextrose (Dextrose 50% Inj) 0 ml IV STAT PRN; Protocol PRN Reason: Hypoglycemia Protocol Dextrose (Glutose 15) 0 gm PO ONCE PRN; Protocol PRN Reason: Hypoglycemia Protocol Docusate Sodium (Colace) 100 mg PO DAILY [facility] Last Admin: 05/10/18 08:44 Dose: 100 mg Glucagon (Glucagen Diagnostic Kit) 0 mg IM STAT PRN; Protocol PRN Reason: Hypoglycemia Protocol Heparin Sodium (Porcine) (Heparin) 5,000 units SC Q8 [facility] PRN Reason: Protocol Last Admin: 05/10/18 13:32 Dose: 5,000 units Insulin Detemir (Levemir) 10 units SC HS [facility] Last Admin: 05/09/18 23:35 Dose: 10 units Insulin Human Lispro (Humalog) 4 units SC ACTID [facility] Last Admin: 05/10/18 12:28 Dose: 4 units Insulin Human Lispro (Humalog) 0 units SC ACHS [facility] PRN Reason: Protocol Last Admin: 05/10/18 12:27 Dose: 4 units Labetalol HCl (Trandate) 100 mg PO BID [facility] Last Admin: 05/10/18 08:46 Dose: Not Given Lactic Acid (Lac-Hydrin 12% Cream (140 G)) 1 ea TOP BID [facility] Last Admin: 05/10/18 08:46 Dose: 1 tube Levetiracetam (Keppra) 500 mg PO BID [facility] Last Admin: 05/10/18 08:45 Dose: 500 mg Lisinopril (Zestril) 10 mg PO DAILY [facility] Senna/Docusate Sodium (Senokot S 50 Mg-8.6 Mg) 1 tab PO HS PRN PRN Reason: Constipation Last Admin: 05/09/18 08:30 Dose: 1 tab - Labs Labs: 05/08/18 12:55 05/08/18 12:55 - Constitutional Appears: No Acute Distress - Head Exam Head Exam: ATRAUMATIC - Eye Exam Eye Exam: absent: Scleral icterus - ENT Exam ENT Exam: Mucous Membranes Moist - Neck Exam Neck Exam: absent: Meningismus - Respiratory Exam Respiratory Exam: absent: Rales, Rhonchi, Wheezes, Respiratory Distress - Cardiovascular Exam Cardiovascular Exam: REGULAR RHYTHM, +S1, +S2 - GI/Abdominal Exam GI & Abdominal Exam: Soft. absent: Tenderness - Rectal Exam Rectal Exam: Deferred - Neurological Exam Neurological Exam: Alert, Oriented x3 - Psychiatric Exam Psychiatric exam: Normal Affect - Skin Skin Exam: Dry, Intact Assessment and Plan - Assessment and Plan (Free Text) Assessment: 62 yo male with history of DM2 and GERD was admitted at [facility] because of left sided weakness. MRI showed acute infarct in the right thalamus. 1. Right Thalamic CVA continue ASA, Plavix and Lipitor physiatry consult with Dr Mitchell Neuro consult follow up with Dr Perla repeat CT scan of the brain: no significant changes as per Dr Perla 2. DM2 BS uncontrolled HgA1C: 12.9 Levemir 12 units SC HS Lispro 4 units SC ACTID Metformin 1000mg PO BID BMP in am 3. HTN BP on the low side decrease Lisinopril to 10mg PO daily 4. Dizziness therapy held today because of above reduce Lisinopril to 10mg PO daily 5. DVT prophylaxis Lovenox 40mg SC daily
[2018-05-10] MEDS: Bismuth Subsalicylate 262 mg Chew Tab PO PRN (16:02)
[2018-05-10] MEDS: Insulin Detemir 100 Units/ml Inj SC SCH ×2 (16:26→22:00)
[2018-05-11 06:56] LABS: BLOOD UREA NITROGEN 24 mg/dl (9-20); CALCIUM 9.4 mg/dL (8.4-10.2); GFR AFRICAN-AMERICAN > 60; GFR NON-AFRICAN AMERICAN > 60
[2018-05-11] MEDS: Enoxaparin 40 mg Syringe SC SCH (08:11)
[2018-05-11] MEDS: Insulin Lispro (humaLOG) 100 Units/ml Inj SC SCH ×7 (08:13→21:37)
[2018-05-11] MEDS: Ammonium Lactate 12% Cream (140 g) TOP SCH ×2 (08:14→16:28)
[2018-05-11] MEDS: Bismuth Subsalicylate 262 mg Chew Tab PO PRN (16:24)
[2018-05-11] MEDS: Insulin Detemir 100 Units/ml Inj SC SCH (21:35)
[2018-05-12] MEDS: Bismuth Subsalicylate 262 mg Chew Tab PO PRN ×2 (02:09→21:35)
[2018-05-12] MEDS: Insulin Lispro (humaLOG) 100 Units/ml Inj SC SCH ×7 (07:37→21:44)
[2018-05-12] MEDS: Enoxaparin 40 mg Syringe SC SCH (08:27)
[2018-05-12] MEDS: Ammonium Lactate 12% Cream (140 g) TOP SCH ×2 (08:58→16:57)
[2018-05-12] MEDS: Lacosamide 50 MG Tab PO SCH (17:00)
--- NOTE | 2018-05-12 19:16 | CP.PCM.PN ---
Subjective - Date & Time of Evaluation Date of Evaluation: 05/10/18 Time of Evaluation: 13:10 - Subjective Subjective: no acute problems at present Objective - Vital Signs/Intake and Output Vital Signs (last 24 hours): Temp Pulse Resp BP Pulse Ox 97.6 F 87 20 145/79 97 05/12/18 08:31 05/12/18 08:31 05/12/18 08:31 05/12/18 08:31 05/12/18 08:31 - Medications Medications: Current Medications Acetaminophen (Tylenol 325mg Tab) 650 mg PO Q6 PRN PRN Reason: PAIN SCALE 1-10. Aspirin (Aspirin Chewable) 81 mg PO DAILY [facility] Last Admin: 05/12/18 08:27 Dose: 81 mg Atorvastatin Calcium (Lipitor) 40 mg PO DIN [facility] Last Admin: 05/12/18 16:58 Dose: 40 mg Bisacodyl (Dulcolax) 10 mg [place] ONCE PRN PRN Reason: Constipation Last Admin: 05/08/18 13:20 Dose: 10 mg Bismuth Subsalicylate (Pepto Bismol) 262 mg PO Q1 PRN PRN Reason: GI distress Last Admin: 05/12/18 02:09 Dose: 262 mg Clopidogrel Bisulfate (Plavix) 75 mg PO DAILY [facility] Last Admin: 05/12/18 08:27 Dose: 75 mg Dextrose (Dextrose 50% Inj) 0 ml IV STAT PRN; Protocol PRN Reason: Hypoglycemia Protocol Dextrose (Glutose 15) 0 gm PO ONCE PRN; Protocol PRN Reason: Hypoglycemia Protocol Docusate Sodium (Colace) 100 mg PO DAILY [facility] Last Admin: 05/12/18 08:28 Dose: Not Given Enoxaparin Sodium (Lovenox) 40 mg SC DAILY [facility] PRN Reason: Protocol Last Admin: 05/12/18 08:27 Dose: 40 mg Glucagon (Glucagen Diagnostic Kit) 0 mg IM STAT PRN; Protocol PRN Reason: Hypoglycemia Protocol Insulin Detemir (Levemir) 12 units SC HS [facility] Last Admin: 05/11/18 21:35 Dose: 12 units Insulin Human Lispro (Humalog) 4 units SC ACTID [facility] Last Admin: 05/12/18 16:56 Dose: 4 units Insulin Human Lispro (Humalog) 0 units SC ACHS [facility] PRN Reason: Protocol Last Admin: 05/12/18 16:57 Dose: 2 units Labetalol HCl (Trandate) 100 mg PO BID [facility] Last Admin: 05/12/18 16:58 Dose: 100 mg Lacosamide (Vimpat) 100 mg PO BID [facility] Last Admin: 05/12/18 17:00 Dose: 100 mg Lactic Acid (Lac-Hydrin 12% Cream (140 G)) 1 ea TOP BID [facility] Last Admin: 05/12/18 16:57 Dose: 1 tube Lisinopril (Zestril) 10 mg PO DAILY [facility] Last Admin: 05/12/18 08:27 Dose: 10 mg Metformin HCl (Glucophage) 1,000 mg PO BIDWM [facility] Last Admin: 05/12/18 16:56 Dose: 1,000 mg Senna/Docusate Sodium (Senokot S 50 Mg-8.6 Mg) 1 tab PO HS PRN PRN Reason: Constipation Last Admin: 05/09/18 08:30 Dose: 1 tab - Labs Labs: 05/08/18 12:55 05/11/18 05:30 - Head Exam Head Exam: ATRAUMATIC, NORMAL INSPECTION, NORMOCEPHALIC - Eye Exam Eye Exam: EOMI, Normal appearance Pupil Exam: NORMAL ACCOMODATION, PERRL - ENT Exam ENT Exam: Mucous Membranes Moist, Normal Exam - Neck Exam Neck Exam: Full ROM, Normal Inspection - Respiratory Exam Respiratory Exam: Clear to Ausculation Bilateral - Cardiovascular Exam Cardiovascular Exam: REGULAR RHYTHM - GI/Abdominal Exam GI & Abdominal Exam: Normal Bowel Sounds - Rectal Exam Rectal Exam: NORMAL INSPECTION - Exam External exam: NORMAL EXTERNAL EXAM - Extremities Exam Extremities Exam: Full ROM - Back Exam Back Exam: NORMAL INSPECTION - Neurological Exam Neurological Exam: Alert, Awake Neuro motor strength exam: Left Upper Extremity: 3, Right Upper Extremity: 3, Left Lower Extremity: 2/1, Right Lower Extremity: 3 - Psychiatric Exam Psychiatric exam: Normal Affect, Normal Mood - Skin Skin Exam: Normal Color Assessment and Plan (1) Hyperlipidemia Status: Acute (2) Diabetes mellitus Status: Chronic (3) GERD (gastroesophageal reflux disease) Status: Chronic (4) Hypertension Status: Chronic (5) CVA (cerebral vascular accident) Assessment & Plan: plan for physical, occupational, rec and speech therapy Status: Resolved
--- NOTE | 2018-05-12 19:19 | CP.PCM.PN ---
Subjective - Date & Time of Evaluation Date of Evaluation: 05/09/18 Time of Evaluation: 20:10 - Subjective Subjective: no acute complaints at present Objective - Vital Signs/Intake and Output Vital Signs (last 24 hours): Temp Pulse Resp BP Pulse Ox 97.6 F 87 20 145/79 97 05/12/18 08:31 05/12/18 08:31 05/12/18 08:31 05/12/18 08:31 05/12/18 08:31 - Medications Medications: Current Medications Acetaminophen (Tylenol 325mg Tab) 650 mg PO Q6 PRN PRN Reason: PAIN SCALE 1-10. Aspirin (Aspirin Chewable) 81 mg PO DAILY [facility] Last Admin: 05/12/18 08:27 Dose: 81 mg Atorvastatin Calcium (Lipitor) 40 mg PO DIN [facility] Last Admin: 05/12/18 16:58 Dose: 40 mg Bisacodyl (Dulcolax) 10 mg [place] ONCE PRN PRN Reason: Constipation Last Admin: 05/08/18 13:20 Dose: 10 mg Bismuth Subsalicylate (Pepto Bismol) 262 mg PO Q1 PRN PRN Reason: GI distress Last Admin: 05/12/18 02:09 Dose: 262 mg Clopidogrel Bisulfate (Plavix) 75 mg PO DAILY [facility] Last Admin: 05/12/18 08:27 Dose: 75 mg Dextrose (Dextrose 50% Inj) 0 ml IV STAT PRN; Protocol PRN Reason: Hypoglycemia Protocol Dextrose (Glutose 15) 0 gm PO ONCE PRN; Protocol PRN Reason: Hypoglycemia Protocol Docusate Sodium (Colace) 100 mg PO DAILY [facility] Last Admin: 05/12/18 08:28 Dose: Not Given Enoxaparin Sodium (Lovenox) 40 mg SC DAILY [facility] PRN Reason: Protocol Last Admin: 05/12/18 08:27 Dose: 40 mg Glucagon (Glucagen Diagnostic Kit) 0 mg IM STAT PRN; Protocol PRN Reason: Hypoglycemia Protocol Insulin Detemir (Levemir) 12 units SC HS [facility] Last Admin: 05/11/18 21:35 Dose: 12 units Insulin Human Lispro (Humalog) 4 units SC ACTID [facility] Last Admin: 05/12/18 16:56 Dose: 4 units Insulin Human Lispro (Humalog) 0 units SC ACHS [facility] PRN Reason: Protocol Last Admin: 05/12/18 16:57 Dose: 2 units Labetalol HCl (Trandate) 100 mg PO BID [facility] Last Admin: 05/12/18 16:58 Dose: 100 mg Lacosamide (Vimpat) 100 mg PO BID [facility] Last Admin: 05/12/18 17:00 Dose: 100 mg Lactic Acid (Lac-Hydrin 12% Cream (140 G)) 1 ea TOP BID [facility] Last Admin: 05/12/18 16:57 Dose: 1 tube Lisinopril (Zestril) 10 mg PO DAILY [facility] Last Admin: 05/12/18 08:27 Dose: 10 mg Metformin HCl (Glucophage) 1,000 mg PO BIDWM [facility] Last Admin: 05/12/18 16:56 Dose: 1,000 mg Senna/Docusate Sodium (Senokot S 50 Mg-8.6 Mg) 1 tab PO HS PRN PRN Reason: Constipation Last Admin: 05/09/18 08:30 Dose: 1 tab - Labs Labs: 05/08/18 12:55 05/11/18 05:30 - Head Exam Head Exam: ATRAUMATIC, NORMAL INSPECTION, NORMOCEPHALIC - Eye Exam Eye Exam: EOMI, Normal appearance Pupil Exam: NORMAL ACCOMODATION, PERRL - ENT Exam ENT Exam: Mucous Membranes Moist, Normal Exam - Neck Exam Neck Exam: Full ROM, Normal Inspection - Respiratory Exam Respiratory Exam: Clear to Ausculation Bilateral, NORMAL BREATHING PATTERN - Cardiovascular Exam Cardiovascular Exam: REGULAR RHYTHM - GI/Abdominal Exam GI & Abdominal Exam: Soft, Normal Bowel Sounds - Rectal Exam Rectal Exam: NORMAL INSPECTION - Exam External exam: NORMAL EXTERNAL EXAM - Extremities Exam Extremities Exam: Full ROM, Normal Capillary Refill - Back Exam Back Exam: NORMAL INSPECTION - Neurological Exam Neurological Exam: Alert Neuro motor strength exam: Left Upper Extremity: 3, Right Upper Extremity: 3, Left Lower Extremity: 2/1, Right Lower Extremity: 3 - Psychiatric Exam Psychiatric exam: Normal Affect, Normal Mood - Skin Skin Exam: Normal Color Assessment and Plan (1) Hyperlipidemia Status: Acute (2) Diabetes mellitus Status: Chronic (3) GERD (gastroesophageal reflux disease) Status: Chronic (4) Hypertension Status: Chronic (5) CVA (cerebral vascular accident) Assessment & Plan: plan for range of motion, strenghtening, transfers and gait training. Medical, and neurology follow up . PT Ot REc ST Status: Resolved
[2018-05-12] MEDS: Insulin Detemir 100 Units/ml Inj SC SCH (21:41)
[2018-05-13] MEDS: Bismuth Subsalicylate 262 mg Chew Tab PO PRN ×3 (01:36→20:32)
[2018-05-13] MEDS: Insulin Lispro (humaLOG) 100 Units/ml Inj SC SCH ×7 (07:38→22:29)
[2018-05-13] MEDS: Ammonium Lactate 12% Cream (140 g) TOP SCH ×2 (08:23→17:24)
[2018-05-13] MEDS: Enoxaparin 40 mg Syringe SC SCH (08:23)
[2018-05-13] MEDS: Lacosamide 50 MG Tab PO SCH ×3 (08:24→17:29)
--- NOTE | 2018-05-13 11:04 | CP.PCM.PN ---
Subjective - Date & Time of Evaluation Date of Evaluation: 05/13/18 Time of Evaluation: 10:59 - Subjective Subjective: Mr. Marte was seen and examined at the bedside. He is alert, oriented, complains of feeling of nausea, but able to tolerate breakfast. According to the staff, he vomited all his morning medications. During the incident, his vital signs are within normal limits. He denies any headache, dizziness. Over the weekend, he was making all excuses such as dizziness not to attend his therapy. Orthostatic vital signs did not show a significant differences. He prefers to be in bed at all times. He is able to move all extremities with the left side weakness improving. Objective - Vital Signs/Intake and Output Vital Signs (last 24 hours): Temp Pulse Resp BP Pulse Ox 98.2 F 99 H 20 130/76 97 05/13/18 10:00 05/13/18 10:00 05/13/18 10:00 05/13/18 10:00 05/13/18 10:00 - Medications Medications: Current Medications Acetaminophen (Tylenol 325mg Tab) 650 mg PO Q6 PRN PRN Reason: PAIN SCALE 1-10. Aspirin (Aspirin Chewable) 81 mg PO DAILY [facility] Last Admin: 05/13/18 08:24 Dose: 81 mg Atorvastatin Calcium (Lipitor) 40 mg PO DIN [facility] Last Admin: 05/12/18 16:58 Dose: 40 mg Bisacodyl (Dulcolax) 10 mg [place] ONCE PRN PRN Reason: Constipation Last Admin: 05/08/18 13:20 Dose: 10 mg Bismuth Subsalicylate (Pepto Bismol) 262 mg PO Q1 PRN PRN Reason: GI distress Last Admin: 05/13/18 05:49 Dose: 262 mg Clopidogrel Bisulfate (Plavix) 75 mg PO DAILY [facility] Last Admin: 05/13/18 08:24 Dose: 75 mg Dextrose (Dextrose 50% Inj) 0 ml IV STAT PRN; Protocol PRN Reason: Hypoglycemia Protocol Dextrose (Glutose 15) 0 gm PO ONCE PRN; Protocol PRN Reason: Hypoglycemia Protocol Docusate Sodium (Colace) 100 mg PO DAILY [facility] Last Admin: 05/13/18 08:24 Dose: Not Given Enoxaparin Sodium (Lovenox) 40 mg SC DAILY [facility] PRN Reason: Protocol Last Admin: 05/13/18 08:23 Dose: 40 mg Glucagon (Glucagen Diagnostic Kit) 0 mg IM STAT PRN; Protocol PRN Reason: Hypoglycemia Protocol Insulin Detemir (Levemir) 12 units SC HS [facility] Last Admin: 05/12/18 21:41 Dose: 12 units Insulin Human Lispro (Humalog) 4 units SC ACTID [facility] Last Admin: 05/13/18 07:38 Dose: 4 units Insulin Human Lispro (Humalog) 0 units SC ACHS [facility] PRN Reason: Protocol Last Admin: 05/13/18 07:39 Dose: 2 units Labetalol HCl (Trandate) 100 mg PO BID [facility] Last Admin: 05/13/18 08:26 Dose: 100 mg Lacosamide (Vimpat) 100 mg PO BID [facility] Last Admin: 05/13/18 08:36 Dose: Not Given Lactic Acid (Lac-Hydrin 12% Cream (140 G)) 1 ea TOP BID [facility] Last Admin: 05/13/18 08:23 Dose: 1 tube Lisinopril (Zestril) 10 mg PO DAILY [facility] Last Admin: 05/13/18 08:26 Dose: 10 mg Metformin HCl (Glucophage) 1,000 mg PO BIDWM [facility] Last Admin: 05/13/18 08:24 Dose: 1,000 mg Ondansetron HCl (Zofran Inj) 4 mg IVP Q6 PRN PRN Reason: Nausea/Vomiting Senna/Docusate Sodium (Senokot S 50 Mg-8.6 Mg) 1 tab PO HS PRN PRN Reason: Constipation Last Admin: 05/09/18 08:30 Dose: 1 tab - Labs Labs: 05/08/18 12:55 05/11/18 05:30 - Constitutional Appears: No Acute Distress - Head Exam Head Exam: NORMAL INSPECTION - Eye Exam Pupil Exam: PERRL - GI/Abdominal Exam GI & Abdominal Exam: Normal Bowel Sounds - Neurological Exam Neurological Exam: Alert, Awake, Oriented x3 Neuro motor strength exam: Left Upper Extremity: 4, Right Upper Extremity: 5, Left Lower Extremity: 4, Right Lower Extremity: 5 Additional comments: alert, oriented, follows commands Assessment and Plan (1) Seizure Assessment & Plan: Continue all current medical, physical, and occupational therapies. Pending EEG result. Recommend hydration. Status: Acute (2) Ischemic stroke Assessment & Plan: Continue all current medical, physical, occupational therapies. Recommend hydration, blood pressure control, psychiatry consult, repeat Ct scan of the head without contrast and abdominal Ct scan due to his nauseous and vomiting. If the patient continuos to vomit, please start fluid at 50 ml/hr, zofran 4 mg IV q 6 hours PRN. Status: Acute
--- NOTE | 2018-05-13 13:16 | CT ---
Date of service: 05/13/2018 PROCEDURE: CT HEAD WITHOUT CONTRAST. HISTORY: cont. nausea, vomiting, recent CVA COMPARISON: 05/08/2018 TECHNIQUE: Axial computed tomography images were obtained through the head/brain without intravenous contrast. Radiation dose: Total exam DLP = 893 mGy-cm. This CT exam was performed using one or more of the following dose reduction techniques: Automated exposure control, adjustment of the mA and/or kV according to patient size, and/or use of iterative reconstruction technique. FINDINGS: HEMORRHAGE: No intracranial hemorrhage. BRAIN: No mass effect or edema. There is a 10 mm subacute or chronic appearing infarct in the right basal ganglia adjacent to the internal capsule. VENTRICLES: Unremarkable. No hydrocephalus. CALVARIUM: Unremarkable. PARANASAL SINUSES: Unremarkable as visualized. No significant inflammatory changes. MASTOID AIR CELLS: Unremarkable as visualized. No inflammatory changes. OTHER FINDINGS: The report concurs with the preliminary [facility] report IMPRESSION: There is a 10 mm subacute or chronic appearing infarct in the right basal ganglia adjacent to the internal capsule.
--- NOTE | 2018-05-13 13:43 | CT ---
Date of service: 05/13/2018 PROCEDURE: CT Abdomen and Pelvis with contrast HISTORY: new onset of cont. nausea and vomiting COMPARISON: None. TECHNIQUE: Helical CT of the abdomen was performed from the domes the diaphragm to the mid iliac bones without oral or intravenous contrast as requested. Reformatted datasets have been provided in sagittal axial and coronal planes. Contrast dose: None Radiation dose: Total exam DLP = 541.22 mGy-cm. This CT exam was performed using one or more of the following dose reduction techniques: Automated exposure control, adjustment of the mA and/or kV according to patient size, and/or use of iterative reconstruction technique. FINDINGS: LOWER THORAX: Unremarkable. LIVER: Unremarkable. No gross lesion or ductal dilatation. GALLBLADDER AND BILE DUCTS: Unremarkable. PANCREAS: Unremarkable. No gross lesion or ductal dilatation. SPLEEN: Unremarkable. ADRENALS: Unremarkable. No mass. KIDNEYS AND URETERS: No hydronephrosis. A 1 cm hyperdensity is seen exophytic off the upper pole right kidney potentially reflecting complex cysts greater nodules not excluded and follow-up ultrasound recommended. No suspicious left renal findings. VASCULATURE: Unremarkable. No aortic aneurysm. BOWEL: The stomach is distended with retained food moderately. The visualize large small bowel appear unremarkable. No definite pericolic or perienteric reactive change. Surgical clips in the right lower quadrant. APPENDIX: Not identified. Potentially surgically absent and surgical clips is seen at the medial cecal base. Clinically correlate. PERITONEUM: Unremarkable. No free fluid. No free air. LYMPH NODES: Unremarkable. No enlarged lymph nodes. BLADDER: Not completely captured exam. REPRODUCTIVE: Not included in the exam. BONES: Borderline for anterior wedge fracture T12, of indeterminate age. OTHER FINDINGS: None. IMPRESSION: 1. No bowel obstruction, measure edema, ascites or free intrarenal gas. Moderate distention of the stomach is appreciated by retained food. Overall gastrointestinal pattern appears nonacute however lack of contrast agents limits the interpretation. 2. 1 cm hyperdensity upper pole right kidney probably reflecting a hyperdense cyst. Follow-up right renal ultrasound is recommended or CT the abdomen with and without contrast.
[2018-05-13 15:13] VITALS: O2SAT 98
--- NOTE | 2018-05-13 15:50 | CP.PCM.CON ---
History of Present Illness - History of Present Illness History of Present Illness: consult requested for depression Estuardo is a 62-year-old male with past medical history significant for type 2 diabetes and GERD that presented to the emergency room at [facility] with left-sided weakness. 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 Presents to Acute rehab for admission and continued intensive therapy. pt noted by staff to be depressed, on evaluation pt presenting with depressed mood and affect. related that to his current medical condition, pt denied any changes in sleep or appetite, no previous formal psychiatric diagnosis or treatment , denied any current suicidal or homicidal ideation denied perceptual disturbances Past Patient History - Past Medical History & Family History Past Medical History?: Yes - Past Social History Smoking Status: Former Smoker - CARDIAC Hx Hypercholesterolemia: Yes Hx Hypertension: Yes - PULMONARY Hx Respiratory Disorders: No - NEUROLOGICAL Hx Neurological Disorder: Yes HX Cerebrovascular Accident: Yes - HEENT Hx HEENT Problems: No - RENAL Hx Chronic Kidney Disease: No - ENDOCRINE/METABOLIC Hx Diabetes Mellitus Type 2: Yes - HEMATOLOGICAL/ONCOLOGICAL Hx Blood Disorders: No Hx AIDS: No Hx Human Immunodeficiency Virus (HIV): No - INTEGUMENTARY Hx Dermatological Problems: No - MUSCULOSKELETAL/RHEUMATOLOGICAL Hx Musculoskeletal Disorders: No Hx Falls: No - GASTROINTESTINAL Hx Gastrointestinal Disorders: Yes Other/Comment: GERD - GENITOURINARY/GYNECOLOGICAL Hx Genitourinary Disorders: No - PSYCHIATRIC Hx Substance Use: Yes (Marijuana) - SURGICAL HISTORY Hx Surgeries: Yes Hx Appendectomy: Yes (2010) - ANESTHESIA Hx Anesthesia: Yes Hx Anesthesia Reactions: No Meds Allergies/Adverse Reactions: Allergies Allergy/AdvReac Type Severity Reaction Status Date / Time No Known Allergies Allergy Verified 05/04/18 22:08 - Medications Medications: Current Medications Acetaminophen (Tylenol 325mg Tab) 650 mg PO Q6 PRN PRN Reason: PAIN SCALE 1-10. Aspirin (Aspirin Chewable) 81 mg PO DAILY [facility] Last Admin: 05/13/18 08:24 Dose: 81 mg Atorvastatin Calcium (Lipitor) 40 mg PO DIN [facility] Last Admin: 05/12/18 16:58 Dose: 40 mg Bisacodyl (Dulcolax) [address] ONCE PRN PRN Reason: Constipation Last Admin: 05/08/18 13:20 Dose: 10 mg Bismuth Subsalicylate (Pepto Bismol) 262 mg PO Q1 PRN PRN Reason: GI distress Last Admin: 05/13/18 05:49 Dose: 262 mg Clopidogrel Bisulfate (Plavix) 75 mg PO DAILY [facility] Last Admin: 05/13/18 08:24 Dose: 75 mg Dextrose (Dextrose 50% Inj) 0 ml IV STAT PRN; Protocol PRN Reason: Hypoglycemia Protocol Dextrose (Glutose 15) 0 gm PO ONCE PRN; Protocol PRN Reason: Hypoglycemia Protocol Docusate Sodium (Colace) 100 mg PO DAILY [facility] Last Admin: 05/13/18 08:24 Dose: Not Given Enoxaparin Sodium (Lovenox) 40 mg SC DAILY [facility] PRN Reason: Protocol Last Admin: 05/13/18 08:23 Dose: 40 mg Glucagon (Glucagen Diagnostic Kit) 0 mg IM STAT PRN; Protocol PRN Reason: Hypoglycemia Protocol Insulin Detemir (Levemir) 12 units SC HS [facility] Last Admin: 05/12/18 21:41 Dose: 12 units Insulin Human Lispro (Humalog) 4 units SC ACTID [facility] Last Admin: 05/13/18 13:14 Dose: Not Given Insulin Human Lispro (Humalog) 0 units SC ACHS [facility] PRN Reason: Protocol Last Admin: 05/13/18 13:14 Dose: Not Given Labetalol HCl (Trandate) 100 mg PO BID [facility] Last Admin: 05/13/18 08:26 Dose: 100 mg Lacosamide (Vimpat) 100 mg PO BID [facility] Last Admin: 05/13/18 08:36 Dose: Not Given Lactic Acid (Lac-Hydrin 12% Cream (140 G)) 1 ea TOP BID [facility] Last Admin: 05/13/18 08:23 Dose: 1 tube Lisinopril (Zestril) 10 mg PO DAILY [facility] Last Admin: 05/13/18 08:26 Dose: 10 mg Metformin HCl (Glucophage) 1,000 mg PO BIDWM [facility] Last Admin: 05/13/18 08:24 Dose: 1,000 mg Ondansetron HCl (Zofran Inj) 4 mg IVP Q6 PRN PRN Reason: Nausea/Vomiting Senna/Docusate Sodium (Senokot S 50 Mg-8.6 Mg) 1 tab PO HS PRN PRN Reason: Constipation Last Admin: 05/09/18 08:30 Dose: 1 tab Physical Exam - Psychiatric Exam Additional comments: pt seen in bed , partial eye contact, speech underproductive, mood tired, constricted affect, alert awake oriented to person and time, denied any current suicidal or homicidal ideation, denied perceptual disturbances Results - Vital Signs Recent Vital Signs: Last Vital Signs Temp 98.2 F 05/13/18 10:00 Pulse 104 H 05/13/18 15:10 Resp 20 05/13/18 10:00 BP 130/76 05/13/18 10:00 Pulse Ox 98 05/13/18 15:10 - Labs Result Diagrams: 05/08/18 12:55 05/11/18 05:30 Labs: Laboratory Results - last 24 hr 05/11/18 05/11/18 05/11/18 11:10 16:55 21:06 POC Glucose (mg/dL) 280 H 189 H 151 H 05/12/18 05/12/18 05/12/18 05:39 11:11 16:09 POC Glucose (mg/dL) 180 H 189 H 191 H 05/12/18 05/13/18 05/13/18 20:36 05:46 12:13 POC Glucose (mg/dL) 190 H 176 H 251 H Assessment & Plan - Assessment and Plan (Free Text) Assessment: post stoke depression Plan: recommend starting zoloft 12.5mg daily
--- NOTE | 2018-05-13 16:58 | CP.PCM.PN ---
Subjective - Date & Time of Evaluation Date of Evaluation: 05/13/18 Time of Evaluation: 14:00 - Subjective Subjective: Patient was seen and examined at bedside. More alert today after Keppra was changed to Vimpat. Complains of nausea and had an episode of vomiting. However he is noted to make excuses not to do therapy including lightheadedness; however orthostatic vital signs were negative at that time. His left sided weakness has been improving. Objective - Vital Signs/Intake and Output Vital Signs (last 24 hours): Temp Pulse Resp BP Pulse Ox 98.2 F 104 H 20 142/87 98 05/13/18 10:00 05/13/18 15:10 05/13/18 10:00 05/13/18 15:10 05/13/18 15:10 - Medications Medications: Current Medications Acetaminophen (Tylenol 325mg Tab) 650 mg PO Q6 PRN PRN Reason: PAIN SCALE 1-10. Aspirin (Aspirin Chewable) 81 mg PO DAILY [facility] Last Admin: 05/13/18 08:24 Dose: 81 mg Atorvastatin Calcium (Lipitor) 40 mg PO DIN [facility] Last Admin: 05/12/18 16:58 Dose: 40 mg Bisacodyl (Dulcolax) 10 mg [place] ONCE PRN PRN Reason: Constipation Last Admin: 05/08/18 13:20 Dose: 10 mg Bismuth Subsalicylate (Pepto Bismol) 262 mg PO Q1 PRN PRN Reason: GI distress Last Admin: 05/13/18 05:49 Dose: 262 mg Clopidogrel Bisulfate (Plavix) 75 mg PO DAILY [facility] Last Admin: 05/13/18 08:24 Dose: 75 mg Dextrose (Dextrose 50% Inj) 0 ml IV STAT PRN; Protocol PRN Reason: Hypoglycemia Protocol Dextrose (Glutose 15) 0 gm PO ONCE PRN; Protocol PRN Reason: Hypoglycemia Protocol Docusate Sodium (Colace) 100 mg PO DAILY [facility] Last Admin: 05/13/18 08:24 Dose: Not Given Enoxaparin Sodium (Lovenox) 40 mg SC DAILY [facility] PRN Reason: Protocol Last Admin: 05/13/18 08:23 Dose: 40 mg Glucagon (Glucagen Diagnostic Kit) 0 mg IM STAT PRN; Protocol PRN Reason: Hypoglycemia Protocol Insulin Detemir (Levemir) 12 units SC [facility] Last Admin: 05/12/18 21:41 Dose: 12 units Insulin Human Lispro (Humalog) 4 units SC ACTID [facility] Last Admin: 05/13/18 13:14 Dose: Not Given Insulin Human Lispro (Humalog) 0 units SC ACHS [facility] PRN Reason: Protocol Last Admin: 05/13/18 13:14 Dose: Not Given Labetalol HCl (Trandate) 100 mg PO BID [facility] Last Admin: 05/13/18 08:26 Dose: 100 mg Lacosamide (Vimpat) 100 mg PO BID [facility] Last Admin: 05/13/18 08:36 Dose: Not Given Lactic Acid (Lac-Hydrin 12% Cream (140 G)) 1 ea TOP BID [facility] Last Admin: 05/13/18 08:23 Dose: 1 tube Lisinopril (Zestril) 10 mg PO DAILY [facility] Last Admin: 05/13/18 08:26 Dose: 10 mg Metformin HCl (Glucophage) 1,000 mg PO BIDWM [facility] Last Admin: 05/13/18 08:24 Dose: 1,000 mg Metoclopramide HCl (Reglan) 10 mg IVP Q6 PRN PRN Reason: Nausea/Vomiting Senna/Docusate Sodium (Senokot S 50 Mg-8.6 Mg) 1 tab PO HS PRN PRN Reason: Constipation Last Admin: 05/09/18 08:30 Dose: 1 tab - Labs Labs: 05/08/18 12:55 05/11/18 05:30 - Additional Findings Additional findings: Physical exam: Constitutional- cooperative, awake, alert Head- NCAT, PERRL Eye- PERRL, EOMI ENT- normal exam, MMM. Neck- normal inspection, supple, no JVD Respiratory- CTAB, no wheezes rales rhonchi Cardiovascular- RRR, +S1, +S2 no MRG GI/Abdominal- normal bowel sounds, soft, no mass, no hsm Skin- warm, dry Extremities Exam- normal capillary refill, normal inspection Neurological Exam- alert, awake, oriented Psych- normal mood, normal affect Assessment and Plan - Assessment and Plan (Free Text) Plan: 62 yo male with history of DM2 and GERD was admitted at [facility] because of left sided weakness. MRI showed acute infarct in the right thalamus. 1. Right Thalamic CVA continue ASA, Plavix and Lipitor physiatry consult with Dr Mitchell Neuro consult follow up with Dr Perla repeat CT scan of the brain: no significant changes as per Dr Perla Vimpat 100 mg po BID (changed from Keppra as per Dr. Perla's recommendations. Patient appears reluctant to perform therapies, will obtain psychiatry consultation for what apperas to be adjustment disorder 2. Nausea, one episode of vomiting - F/u CT head and abd/pelvis was ordered by neurology, CT head shows stable appearing chronic infarct, abd/pelvis shows no acute findings but does show evidence of complex renal cyst.Renal cyst US ordered - Change Zofran to Reglan as nausea may be related to motility issue/diabetic gastroparesis 3. DM2 BS better controlled with regimen HgA1C: 12.9 Levemir 12 units SC HS Lispro 4 units SC ACTID Metformin 1000mg PO BID BMP in am 4. HTN BP stablized, negative orthostatics decrease Lisinopril to 10mg PO daily 4. Dizziness therapy held today because of above reduce Lisinopril to 10mg PO daily 5. DVT prophylaxis Lovenox 40mg SC daily
[2018-05-13] MEDS: Insulin Detemir 100 Units/ml Inj SC SCH (22:36)
[2018-05-14] MEDS: Insulin Lispro (humaLOG) 100 Units/ml Inj SC SCH ×2 (07:34→07:35)
[2018-05-14] MEDS: Enoxaparin 40 mg Syringe SC SCH (08:32)
[2018-05-14] MEDS: Bismuth Subsalicylate 262 mg Chew Tab PO PRN (08:33)
[2018-05-14] MEDS: Ammonium Lactate 12% Cream (140 g) TOP SCH (08:36)
[2018-05-14] MEDS: Lacosamide 50 MG Tab PO SCH (08:41)
[2018-05-14 08:50] VITALS: PULSE 98; RESP 21; TEMP 97.9
[2018-05-14] MEDS ORDERED: Lacosamide 200mg/20ml 200 MG in Sodium Chloride 0.9% 100 ML IVPB ONE (11:04)
--- NOTE | 2018-05-14 11:04 | PCM.RRT ---
SPACE OPERATIONS OFFICER Nurse Assessment - Situation SPACE OPERATIONS OFFICER Responder Arrival Time: 10:55 SPACE OPERATIONS OFFICER Reason for Call: Hypotension SPACE OPERATIONS OFFICER Called By: RN - IV IV Inserted during SPACE OPERATIONS OFFICER?: Yes - Respiratory Oxygen Delivery Method: Nasal Cannula Received Nebulizer Treatments: No Was the Patient Ventilated with Bag/Mask 100% O2?: No Secretions Suctioned?: No Was the Patient Intubated?: No Was the Patient Placed on a Ventilator?: No - Diagnostic Test Ordered EKG: Yes Chest X-Ray: No CT Scan: No - Stat Labs Ordered SPACE OPERATIONS OFFICER Stat Labs Ordered: BMP, TROPONIN CPR started during SPACE OPERATIONS OFFICER?: No - Vital Signs Vital Signs: Rapid Response Vital Sign Blood Pressure 132/87 Pulse Rate 93 Respiratory Rate 18 Temperature 97.9 F Oxygen Saturation 97 - Time SPACE OPERATIONS OFFICER Ended Time SPACE OPERATIONS OFFICER Ended: 12:25 - Vital Signs at end of SPACE OPERATIONS OFFICER Vital Signs at end of SPACE OPERATIONS OFFICER: Rapid Response End Vital Sign Blood Pressure 123/74 Pulse Rate 87 Respiratory Rate 18 - Recommendations SPACE OPERATIONS OFFICER Level of Care Recommendations: Remain in current setting I.Reason for SPACE OPERATIONS OFFICER - A) Acute Change in Patient: Subjective: Patient is a 62-year-old male with past medical history significant for type 2 diabetes and GERD, seizure on kepra for 2 days, was sent from [facility] to Rehab for weakness post acute CVA. Pt was found by nurse shaking, twitching and unresponsive, she described it as a seizure. The medical team was called for SPACE OPERATIONS OFFICER. Vitals were ( T 97.7, BP 112/82 Pulse 82, o2 100% on room air, glucose 260. Pt is currently stable, responsive and follow commands. SPACE OPERATIONS OFFICER was done at 11: 00 - Neurological Status (Select all that apply): Alert, Responsive, Follows Commands. absent: Weakness - Respiratory Oxygen Delivery Method: Nasal Cannula @L/min - Constitutional Appears: Well, Non-toxic - Head Head Exam: ATRAUMATIC, NORMAL INSPECTION, NORMOCEPHALIC - Eyes Eye Exam: Normal appearance - Respiratory Exam Respiratory Exam: Clear to Ausculation Bilateral, NORMAL BREATHING PATTERN - Cardiovascular Exam Cardiovascular Exam: REGULAR RHYTHM, +S1, +S2 - GI/Abdominal Exam GI & Abdominal Exam: Soft, Normal Bowel Sounds - Neurological Exam Neurological Exam: Alert, Awake - Extremities Exam Extremities Exam: Full ROM, Normal Inspection Plan - Assessment of Findings&Treatment Plan Patient is a 62-year-old male with past medical history significant for type 2 diabetes and GERD, seizure on keppra. SPACE OPERATIONS OFFICER was called. SPACE OPERATIONS OFFICER was called for seizure Pt have improved, stable non toxic, awake, follow command Ryan are on the case Med augmentation needed, follow up with Neuro recommendation Pt should continue in rehab and monitor for acute changes
--- NOTE | 2018-05-14 11:24 | US ---
Date of service: 05/13/2018 PROCEDURE: Ultrasound of the Kidneys HISTORY: eval for right sided complex cyst as on ct scan COMPARISON: May 13, 2018. CT abdomen and pelvis.. TECHNIQUE: Sonogram of the kidneys. FINDINGS: RIGHT KIDNEY: Measures: 4.9 x 4.7 x 9.2 cm. Normal in size, contour and echogenicity. Complex cyst, perhaps mass upper pole 0.9 x 1 x 1.2 cm. This confirms the finding on recent CT. LEFT KIDNEY: Measures: 5.4 x 5.9 x 9.8 cm. Normal in size, contour and echogenicity. No stone, solid mass lesion or hydronephrosis visualized. OTHER FINDINGS: None. IMPRESSION: Complex cyst/upper pole mass right kidney confirming findings on recent CT scan.
[2018-05-14 13:05] VITALS: BP 112/74
[2018-05-14] MEDS ORDERED: Lacosamide 200mg/20ml 100 MG in Sodium Chloride 0.9% 100 ML IVPB SCH (17:00)
== END 2018-05-14 11:20 | disposition short-term general hospital (02) | DRG 57 ==
PROVIDERS: ADMIT Internal Medicine; ATTEND Internal Medicine
PROC: F07M6FZ Therapeutic Exercise Treatment of Musculoskeletal System - Whole Body using Assistive, Adaptive, Supportive or Protective Equipment (ICD-10-PCS; principal; 2018-05-08)
PROC: F08Z4FZ Home Management Treatment using Assistive, Adaptive, Supportive or Protective Equipment (ICD-10-PCS; 2018-05-08)
PROC: F07Z9FZ Gait Training/Functional Ambulation Treatment using Assistive, Adaptive, Supportive or Protective Equipment (ICD-10-PCS; 2018-05-08)
DX: I69.354 Hemiplegia and hemiparesis following cerebral infarction affecting left non-dominant side (principal); I10 Essential (primary) hypertension; K21.9 Gastro-esophageal reflux disease without esophagitis; K59.00 Constipation, unspecified; R56.9 Unspecified convulsions; Z56.0 Unemployment, unspecified; Z79.02 Long term (current) use of antithrombotics/antiplatelets; Z79.4 Long term (current) use of insulin; Z79.82 Long term (current) use of aspirin; Z79.899 Other long term (current) drug therapy; Z83.3 Family history of diabetes mellitus; Z87.891 Personal history of nicotine dependence; Z90.49 Acquired absence of other specified parts of digestive tract; R42 Dizziness and giddiness; E11.65 Type 2 diabetes mellitus with hyperglycemia; E78.00 Pure hypercholesterolemia, unspecified; E78.5 Hyperlipidemia, unspecified; F12.90 Cannabis use, unspecified, uncomplicated; F32.9 Major depressive disorder, single episode, unspecified; I95.9 Hypotension, unspecified; F43.21 Adjustment disorder with depressed mood

== ENCOUNTER 2018-05-14 11:47 | Observation (INO) | payer BC ==
[2018-05-14 11:47] VITALS: BMI 28.8
[2018-05-14 12:36] LABS: BASO # 0.1 K/uL (0.0-0.2); EOS # 0.1 K/uL (0.0-0.7); HEMOGLOBIN 13.5 g/dL (12.0-18.0); LYMPH # 1.9 K/uL (1.0-4.3); LYMPH % 18.2 % (20.0-40.0); MEAN CELL VOLUME 84.5 fl (80.0-94.0); MEAN CORPUSCULAR HEMOGLOBIN 29.2 pg (27.0-31.0); MEAN CORPUSCULAR HGB CONC 34.5 g/dL (33.0-37.0); MEAN PLATELET VOLUME 8.8 fl (7.2-11.7); MONO # 0.8 K/uL (0.0-0.8); MONO % 7.5 % (0.0-10.0); NEUT # 7.5 K/uL (1.8-7.0); NEUT % 72.3 % (50.0-75.0); NRBC % 0.1 % (0.0-0.0); RBC 4.61 Mil/uL (4.40-5.90); RED CELL DISTRIBUTION WIDTH 13.7 % (11.5-14.5); WHITE BLOOD COUNT 10.4 K/uL (4.8-10.8)
[2018-05-14 12:46] LABS: INR 1.2 (0.9-1.2); PARTIAL THROMBOPLASTIN TIME 34.5 Seconds (25.6-37.1); PROTHROMBIN TIME 13.3 Seconds (9.8-13.1)
[2018-05-14 12:53] LABS: ALB/GLOB RATIO 1.2 (1.0-2.1); ALBUMIN 4.2 g/dL (3.5-5.0); ALT/SGPT 52 U/L (21-72); AST/SGOT 29 U/L (17-59); BLOOD UREA NITROGEN 32 mg/dl (9-20); CALCIUM 9.8 mg/dL (8.4-10.2); GFR AFRICAN-AMERICAN > 60; GFR NON-AFRICAN AMERICAN > 60
--- NOTE | 2018-05-14 13:14 | CT ---
Date of service: 05/14/2018 PROCEDURE: CT HEAD WITHOUT CONTRAST. HISTORY: seizure, recent CVA COMPARISON: 05/08/2018 and 05/13/2018. CT head TECHNIQUE: Axial computed tomography images were obtained through the head/brain without intravenous contrast. Coronal and sagittal reconstructed images. Radiation dose: Total exam DLP = 1157.71 mGy-cm. This CT exam was performed using one or more of the following dose reduction techniques: Automated exposure control, adjustment of the mA and/or kV according to patient size, and/or use of iterative reconstruction technique. FINDINGS: HEMORRHAGE: No intracranial hemorrhage. BRAIN: No mass effect or edema. Stable infarction internal capsule adjacent to right thalamus. Stable brainstem infarction VENTRICLES: Unremarkable. No hydrocephalus. CALVARIUM: Unremarkable. PARANASAL SINUSES: Unremarkable as visualized. No significant inflammatory changes. MASTOID AIR CELLS: Unremarkable as visualized. No inflammatory changes. OTHER FINDINGS: None. IMPRESSION: Stable findings right basal ganglia and brainstem on the left. No new/ acute findings. No significant interval change compared to prior studies.
--- NOTE | 2018-05-14 14:02 | ED PDOC ---
HPI: General Adult Time Seen by Provider: 05/14/18 12:00 Chief Complaint (Nursing): Altered Mental Status Chief Complaint (Provider): RECURRENT SEIZURE History Per: Patient, Other (Dr Lamb) Onset/Duration Of Symptoms: Sudden Onset Current Symptoms Are (Timing): Better Severity: Moderate Recently: Hospitalized Additional Complaint(s): 62yo male arrives from rehab unit where he is recovering from an acute CVA, noted to have recurrent seizures despite Vimpat therapy. In ED awake, alert, c/ o mild headache but denies change vision, dizziness, back or extremity pain. Has been seen by neurology recently, recommended repeat CT brain given recurrence of seizures and recent CVA. Past Medical History Vital Signs: Last Vital Signs Temp 97.8 F 05/14/18 12:59 Pulse 83 05/14/18 12:59 Resp 14 05/14/18 12:59 BP 99/65 L 05/14/18 12:59 Pulse Ox 100 05/14/18 12:59 - Medical History PMH: HTN, Hypercholesterolemia Denies: HIV, Chronic Kidney Disease - Surgical History Surgical History: Appendectomy (2010) - Immunization History Hx Tetanus Toxoid Vaccination: No - Home Medications Home Medications: Ambulatory Orders Medication Instructions Recorded Acetaminophen [Tylenol] 650 mg PO Q6 PRN 05/07/18 Aspirin [Aspirin Chewable] 81 mg PO DAILY chew 05/07/18 Atorvastatin [Lipitor] 40 mg PO DIN tab 05/07/18 Clopidogrel [Plavix] 75 mg PO DAILY tab 05/07/18 Heparin Sodium,Porcine [Heparin 5,000 units SQ Q8 05/07/18 Sodium] Insulin Detemir [Levemir] 10 unit SC HS unit 05/07/18 Insulin Lispro [humALOG] 3 units SC AC ml 05/07/18 Insulin Lispro [humALOG] See Protocol SQ ACHS 05/07/18 Labetalol [Trandate] 100 mg PO TID 05/07/18 Lisinopril [Zestril] 20 mg PO DAILY tab 05/07/18 - Allergies Allergies/Adverse Reactions: Allergies Allergy/AdvReac Type Severity Reaction Status Date / Time No Known Allergies Allergy Verified 05/14/18 12:09 - Laboratory Results Result Diagrams: 05/14/18 12:27 05/14/18 12:27 - ECG O2 Sat by Pulse Oximetry: 100
--- NOTE | 2018-05-14 15:05 | CARD ---
APPROVED REPORT Date of service: 05/14/2018 EKG Measurement Heart [id number] <Conclusion> Normal sinus rhythm Normal ECG
--- NOTE | 2018-05-14 16:15 | CP.PCM.HP ---
History of Present Illness - History of Present Illness History of Present Illness: Patient is a 62-year-old male with past medical history significant for type 2 diabetes and GERD that presented to the emergency room at [facility] initially with left-sided weakness. 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 Presents to Acute rehab for admission and contuied intensive therapy. During his stay the patient had increasing lethargy and had a possible seizure versus hypotensive/ syncopal event on 05/08. Patient was initially on Keppra for seizure prophylaxis afterwards, this was changed to Vimpat 100 mg po BID 2 days ago as the patient became more lethargic and was unable to tolerate. Today however, LOAN SERVICE OFFICER was again called due to seizure like activity as the patient was noticed to have lipsmacking episode and went unresponsive for about a minute. The patient remained post ictal for about an hour afterwards. Dr. Lainez was notified and the patient was sent to telemetry as per her recommendation. PMD: none PMH: DM2, GERD, CVA new dx at [facility], Hypertension PSH: appendectomy in 2010 Meds: Patient denies taking any home medications New meds from [place] reviewed. Allergies: NKDA Fam Hx: mother and two brothers have DM2 Soc Hx: denies tobacco or alcohol use. Admits to occasionally smoking marijuana. He is currently under a lot of stress as he is unemployed and trying to find a job. Present on Admission - Present on Admission Any Indicators Present on Admission: No Review of Systems - Review of Systems Systems not reviewed;Unavailable: Altered Mental Status (postictal) Past Patient History - Infectious Disease Hx of Infectious Diseases: None - Past Medical History & Family History Past Medical History?: Yes Past Family History: Reviewed and not pertinent - Past Social History Smoking Status: Former Smoker Alcohol: None Drugs: Cannabis - CARDIAC Hx Hypercholesterolemia: Yes Hx Hypertension: Yes - PULMONARY Hx Respiratory Disorders: No - NEUROLOGICAL Hx Neurological Disorder: Yes HX Cerebrovascular Accident: Yes - HEENT Hx HEENT Problems: No - RENAL Hx Chronic Kidney Disease: No - ENDOCRINE/METABOLIC Hx Diabetes Mellitus Type 2: Yes - HEMATOLOGICAL/ONCOLOGICAL Hx Human Immunodeficiency Virus (HIV): No - INTEGUMENTARY Hx Dermatological Problems: No - MUSCULOSKELETAL/RHEUMATOLOGICAL Hx Musculoskeletal Disorders: No Hx Falls: No - GASTROINTESTINAL Hx Gastrointestinal Disorders: Yes Other/Comment: GERD - GENITOURINARY/GYNECOLOGICAL Hx Genitourinary Disorders: No - PSYCHIATRIC Hx Substance Use: Yes (Marijuana) - SURGICAL HISTORY Hx Appendectomy: Yes (2010) - ANESTHESIA Hx Anesthesia: Yes Hx Anesthesia Reactions: No Meds Allergies/Adverse Reactions: Allergies Allergy/AdvReac Type Severity Reaction Status Date / Time No Known Allergies Allergy Verified 05/14/18 12:09 Physical Exam - Additional Findings Additional findings: Physical exam: Constitutional- postictal but arousable Head- NCAT, PERRL Eye- PERRL, EOMI ENT- normal exam, MMM. Neck- normal inspection, supple, no JVD Respiratory- CTAB, no wheezes rales rhonchi Cardiovascular- RRR, +S1, +S2 no MRG GI/Abdominal- normal bowel sounds, soft, no mass, no hsm Skin- warm, dry Extremities Exam- normal capillary refill, normal inspection Neurological Exam- postictal but arousable, awake Psych- normal mood, normal affect Results - Vital Signs Recent Vital Signs: Last Vital Signs Temp 97.8 F 05/14/18 12:59 Pulse 83 05/14/18 12:59 Resp 14 05/14/18 12:59 BP 99/65 L 05/14/18 12:59 Pulse Ox 100 05/14/18 14:02 - Labs Result Diagrams: 05/14/18 12:27 05/14/18 12:27 Labs: Laboratory Results - last 24 hr 05/14/18 05/14/18 05/14/18 12:27 12:27 12:27 WBC 10.4 RBC 4.61 Hgb 13.5 Hct 39.0 MCV 84.5 MCH 29.2 MCHC 34.5 RDW 13.7 Plt Count 281 MPV 8.8 Neut % (Auto) 72.3 Lymph % (Auto) 18.2 L Green % (Auto) 7.5 Eos % (Auto) 1.0 Baso % (Auto) 1.0 Neut # (Auto) 7.5 H Lymph # (Auto) 1.9 Green # (Auto) 0.8 Eos # (Auto) 0.1 Baso # (Auto) 0.1 PT 13.3 H INR 1.2 APTT 34.5 Sodium 134 Potassium 4.8 Chloride 100 Carbon Dioxide 20 L Anion Gap 19 BUN 32 H Creatinine 1.2 Est GFR ( Amer) > 60 Est GFR (Non-Af Amer) > 60 Random Glucose 260 H Calcium 9.8 Total Bilirubin 1.1 AST 29 ALT 52 Alkaline Phosphatase 91 Troponin I < 0.0120 Total Protein 7.5 Albumin 4.2 Globulin 3.4 Albumin/Globulin Ratio 1.2 Assessment & Plan - Assessment and Plan (Free Text) Plan: Patient is a 62-year-old male with past medical history significant for type 2 diabetes and GERD that presented to the emergency room at [facility] initially with left-sided weakness. 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 Presents to Acute rehab for admission and contuied intensive therapy. During his stay the patient had increasing lethargy and had a possible seizure versus hypotensive/ syncopal event on 05/08. Patient was initially on Keppra for seizure prophylaxis afterwards, this was changed to Vimpat 100 mg po BID 2 days ago as the patient became more lethargic and was unable to tolerate. Today however, LOAN SERVICE OFFICER was again called due to seizure like activity as the patient was noticed to have lipsmacking episode and went unresponsive for about a minute. The patient remained post ictal for about an hour afterwards. Dr. Lainez was notified and the patient was sent to telemetry as per her recommendation. 1. Recurrent seizures s/p CVA, s/p LOAN SERVICE OFFICER today Telemetry/observation Neurology consultation with Dr. Lainez Vimpat 200 mg IVP was given as per neurology instructions and are to be continued 100 mg IVPB q [address] seizure prophylaxis CT scan in ED today showed no changes to preexisting CVA or hemorrhagic conversion Seizure precautions 2. Right Thalamic CVA continue ASA, Plavix and Lipitor Neuro consult follow up with Dr Perla repeat CT scan of the brain: no significant changes as per Dr Perla 2. Nausea, one episode of vomiting - Change Zofran to Reglan as nausea may be related to motility issue/diabetic gastroparesis 3. DM2 BS better controlled with regimen HgA1C: 12.9 Levemir 12 units SC HS Lispro 4 units SC ACTID Metformin 1000mg PO BID BMP in am 4. HTN BP stablized, negative orthostatics decrease Lisinopril to 10mg PO daily Disposition: possible discharge back to acute rehab tomorrow 5. DVT prophylaxis Lovenox 40mg SC daily
[2018-05-14] MEDS ORDERED: Lacosamide 200mg/20ml 100 MG in Sodium Chloride 0.9% 100 ML IV SCH (17:00)
[2018-05-14] MEDS ORDERED: Lacosamide 200mg/20ml Inj IVPB SCH (17:00)
[2018-05-14] MEDS: Insulin Lispro (humaLOG) 100 Units/ml Inj SC SCH ×2 (17:51→21:31)
[2018-05-14] MEDS ORDERED: Insulin Detemir 100 Units/ml Inj SC SCH (22:00)
[2018-05-15 06:56] LABS: URINE BACTERIA RARE (<OCC); URINE BILIRUBIN NEGATIVE (NEGATIVE); URINE BLOOD NEGATIVE (NEGATIVE); URINE CLARITY SLIGHTY-CLOUDY (Clear); URINE COLOR YELLOW (YELLOW); URINE GLUCOSE (UA) NEG (Normal); URINE LEUKOCYTE ESTERASE NEG Leu/uL (Negative); URINE PROTEIN NEGATIVE (NEGATIVE)
[2018-05-15] MEDS: Insulin Lispro (humaLOG) 100 Units/ml Inj SC SCH ×4 (06:59→12:50)
[2018-05-15 08:01] LABS: HEMOGLOBIN 13.8 g/dL (12.0-18.0); MEAN CELL VOLUME 85.1 fl (80.0-94.0); MEAN CORPUSCULAR HEMOGLOBIN 29.3 pg (27.0-31.0); MEAN CORPUSCULAR HGB CONC 34.5 g/dL (33.0-37.0); RBC 4.71 Mil/uL (4.40-5.90); RED CELL DISTRIBUTION WIDTH 13.9 % (11.5-14.5); WHITE BLOOD COUNT 10.8 K/uL (4.8-10.8)
[2018-05-15 08:15] LABS: BLOOD UREA NITROGEN 34 mg/dl (9-20); CALCIUM 9.7 mg/dL (8.4-10.2); GFR AFRICAN-AMERICAN > 60; GFR NON-AFRICAN AMERICAN > 60
[2018-05-15 08:49] VITALS: RESP 20
[2018-05-15] MEDS ORDERED: Lacosamide 200mg/20ml 100 MG in Sodium Chloride 0.9% 100 ML IV SCH (09:00)
[2018-05-15] MEDS ORDERED: Enoxaparin 40 mg Syringe SC SCH (09:00)
[2018-05-15 13:02] VITALS: BP 124/79; TEMP 98.3
--- NOTE | 2018-05-15 14:31 | CP.PCM.DIS ---
Provider - Provider Date of Admission: 05/14/18 12:57 Attending physician: Byron Lamb DO Consults: Dr Lainez Time Spent in preparation of Discharge (in minutes): 25 Diagnosis - Discharge Diagnosis (1) Seizure Status: Acute Comment: continue Vimpat 100mg PO BID. Dr Lainez on neuro consult. seizure precaution (2) Right thalamic infarction Status: Acute Comment: continue ASA, Plavix and Lipitor (3) Diabetes mellitus Status: Chronic Priority: Medium Comment: BS slightly elevated. increase Levemir 14 units SC HS. Metformin 1000mg PO BID (4) Hypertension Status: Chronic Priority: Medium Comment: BP stable. continue Labetalol and Lisinopril Hospital Course - Lab Results Lab Results: Most Recent Lab Values WBC 10.8 K/uL (4.8-10.8) 05/15/18 07:10 RBC 4.71 Mil/uL (4.40-5.90) 05/15/18 07:10 Hgb 13.8 g/dL (12.0-18.0) 05/15/18 07:10 Hct 40.0 % (35.0-51.0) 05/15/18 07:10 MCV 85.1 fl (80.0-94.0) 05/15/18 07:10 MCH 29.3 pg (27.0-31.0) 05/15/18 07:10 MCHC 34.5 g/dL (33.0-37.0) 05/15/18 07:10 RDW 13.9 % (11.5-14.5) 05/15/18 07:10 Plt Count 276 K/uL (130-400) 05/15/18 07:10 MPV 8.8 fl (7.2-11.7) 05/14/18 12:27 Neut % (Auto) 72.3 % (50.0-75.0) 05/14/18 12:27 Lymph % (Auto) 18.2 % (20.0-40.0) L 05/14/18 12:27 Smith % (Auto) 7.5 % (0.0-10.0) 05/14/18 12:27 Eos % (Auto) 1.0 % (0.0-4.0) 05/14/18 12:27 Baso % (Auto) 1.0 % (0.0-2.0) 05/14/18 12:27 Neut # (Auto) 7.5 K/uL (1.8-7.0) H 05/14/18 12:27 Lymph # (Auto) 1.9 K/uL (1.0-4.3) 05/14/18 12: Smith # (Auto) 0.8 K/uL (0.0-0.8) 05/14/18 12: Eos # (Auto) 0.1 K/uL (0.0-0.7) 05/14/18 12: Baso # (Auto) 0.1 K/uL (0.0-0.2) 05/14/18 12: PT 13.3 Seconds (9.8-13.1) H 05/14/18 12: INR 1.2 (0.9-1.2) 05/14/18 12: APTT 34.5 Seconds (25.6-37.1) 05/14/18 12:27 Sodium 136 mmol/l (132-148) 05/15/18 07:10 Potassium 4.9 MMOL/L (3.6-5.0) 05/15/18 07:10 Chloride 100 mmol/L (98-107) 05/15/18 07:10 Carbon Dioxide 21 mmol/L (22-30) L 05/15/18 07:10 Anion Gap 20 (10-20) 05/15/18 07:10 BUN 34 mg/dl (9-20) H 05/15/18 07:10 Creatinine 1.2 mg/dl (0.8-1.5) 05/15/18 07:10 Est GFR ( Amer) > 60 05/15/18 07:10 Est GFR (Non-Af Amer) > 60 05/15/18 07:10 POC Glucose (mg/dL) 236 mg/dL (65-110) H 05/15/18 11:26 Random Glucose 256 mg/dL (75-110) H 05/15/18 07:10 Calcium 9.7 mg/dL (8.4-10.2) 05/15/18 07:10 Total Bilirubin 1.1 mg/dl (0.2-1.3) 05/14/18 12:27 AST 29 U/L (17-59) 05/14/18 12:27 ALT 52 U/L (21-72) 05/14/18 12:27 Alkaline Phosphatase 91 U/L (38-126) 05/14/18 12: Troponin I < 0.0120 ng/mL (0.00-0.120) 05/14/18 12:27 Total Protein 7.5 G/DL (6.3-8.2) 05/14/18 12: Albumin 4.2 g/dL (3.5-5.0) 05/14/18 12: Globulin 3.4 gm/dL (2.2-3.9) 05/14/18 12: Albumin/Globulin Ratio 1.2 (1.0-2.1) 05/14/18 12:27 Urine Color Yellow (YELLOW) 05/15/18 06:45 Urine Clarity Slighty-cloudy (Clear) 05/15/18 06:45 Urine pH 5.0 (5.0-8.0) 05/15/18 06:45 Ur Specific [place] 1.024 (1.003-1.030) 05/15/18 06:45 Urine Protein Negative mg/dL (NEGATIVE) 05/15/18 06:45 Urine Glucose (UA) Neg mg/dL (Normal) 05/15/18 06:45 Urine Ketones Negative mg/dL (NEGATIVE) 05/15/18 06:45 Urine Blood Negative (NEGATIVE) 05/15/18 06:45 Urine Nitrate Negative (NEGATIVE) 05/15/18 06:45 Urine Bilirubin Negative (NEGATIVE) 05/15/18 06:45 Urine Urobilinogen 2.0 mg/dL (0.2-1.0) 05/15/18 06:45 Ur Leukocyte Esterase Neg Cherelle/uL (Negative) 05/15/18 06:45 Urine RBC (Auto) 4 /hpf (0-3) H 05/15/18 06:45 Urine Microscopic WBC < 1 /hpf (0-5) 05/15/18 06:45 Urine Bacteria Rare (<OCC) 05/15/18 06:45 - Hospital Course Hospital Course: 62 yo male with history of DM2 and GERD was admitted at [facility] because of left sided weakness secondary to acute right thalamic infarct. He was later transferred to [facility] and admitted in Acute Rehab for PT/OT. His stay was marked with increased lethargy and new onset seizure on 05/14/18. Patient was transferred and observed in telemetry. He was started initially on Keppra but later on switched to Vimpat. No further seizure activity was noted during his one day stay in telemetry. Patient transferred back to Acute Rehab. Dr Lainez, neurologist aware and agreed. Discharge Exam - Eye Exam Eye Exam: absent: Scleral icterus - ENT Exam ENT Exam: Mucous Membranes Moist - Respiratory Exam Respiratory Exam: absent: Rales, Rhonchi, Wheezes, Respiratory Distress - Cardiovascular Exam Cardiovascular Exam: REGULAR RHYTHM, +S1, +S2 - GI/Abdominal Exam GI & Abdominal Exam: Soft. absent: Tenderness - Rectal Exam Rectal Exam: Deferred - Back Exam Back exam: NORMAL INSPECTION - Neurological Exam Neurological exam: Alert, Oriented x3 - Psychiatric Exam Psychiatric exam: Normal Affect - Skin Skin Exam: Dry, Intact Discharge Plan - Follow Up Plan Condition: GOOD Disposition: HOME/ ROUTINE
[2018-05-15] MEDS ORDERED: Insulin Detemir 100 Units/ml Inj SC SCH (14:45)
[2018-05-15 15:33] VITALS: PULSE 106; O2SAT 98
[2018-05-15] MEDS ORDERED: Lacosamide 50 MG Tab PO SCH (17:00)
== END 2018-05-15 15:55 ==
LOC: H.ER 11:47 → INTOOBSV 12:57 → H.ERHOLD 12:57 → H.TEL 21:25
PROVIDERS: ADMIT Internal Medicine; ATTEND Internal Medicine
DX: G40.909 Epilepsy, unspecified, not intractable, without status epilepticus (principal); I69.354 Hemiplegia and hemiparesis following cerebral infarction affecting left non-dominant side; E11.9 Type 2 diabetes mellitus without complications; K21.9 Gastro-esophageal reflux disease without esophagitis; E78.00 Pure hypercholesterolemia, unspecified; I10 Essential (primary) hypertension; F12.90 Cannabis use, unspecified, uncomplicated; Z79.02 Long term (current) use of antithrombotics/antiplatelets; Z79.4 Long term (current) use of insulin; Z87.891 Personal history of nicotine dependence
CPT/HCPCS: 36415; 70450; 80048; 80053; 81003; 82948; 84484; 85025; 85027; 85610; 85730; 93005; 96372; 97162; 99285; G0378; G8978; G8979; J1650